=== PATIENT | female | born 1985 | race Caucasian/White ===

== ENCOUNTER 2023-08-04 12:08 | Emergency (ER) | payer OTHER ==
[2023-08-04] MEDS ORDERED: ONDANSETRON 4 MG (ODT) TAB ONE (12:25)
[2023-08-04] MEDS ORDERED: MORPHINE 4 MG/ML SYR ONE (12:26)
--- NOTE | 2023-08-04 13:31 | RAD REPORT ---
EXAM DESCRIPTION: RAD - Ribs Left - 08/04/2023 1:24 pm CLINICAL HISTORY: PAIN COMPARISON: <Comparisons> FINDINGS/IMPRESSION: No displaced left-sided rib fractures identified. No pneumothorax. Scoliosis.
--- NOTE | 2023-08-04 13:40 | EDPHYS ---
Physician Documentation [facility] Name: Amber José Age: 38 yrs Sex: Female : 1985 Arrival Date: 08/04/2023 Time: 12:08 Bed 12 Private MD: ED Physician Aman Ford HPI: 08/03 12:25 This 38 yrs old Female presents to ER via Wheelchair with complaints of Rib pain. sb4 12:25 The patient or guardian reports chest pain that is located primarily in the anterior sb4 chest wall. Onset: The symptoms/episode began/occurred 6 day(s) ago. The pain does not radiate. Associated signs and symptoms: Pertinent negatives: cough, dizziness, headache, lightheadedness, shortness of breath. Modifying factors: The symptoms are alleviated by nothing. the symptoms are aggravated by breathing, cough, deep breath, movement. The patient has not recently seen a physician. 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 - Infectious Disease History:: Denies. - Social history:: Smoking status: Patient denies any tobacco usage or history of. ROS: 12:25 Constitutional: Negative for fever, chills, and weight loss, sb4 12:25 MS/extremity: Positive for per HPI, 12:25 All other systems are negative, Exam: 12:25 Cardiovascular: Regular rate and rhythm with a normal S1 and S2. Respiratory: Lungs sb4 have equal breath sounds bilaterally, clear to auscultation and percussion. No rales, rhonchi or wheezes noted. No increased work of breathing, no retractions or nasal flaring. 12:25 Constitutional: The patient appears alert, awake, in obvious pain, uncomfortable, 12:25 Chest/axilla: Inspection: normal, Palpation: tenderness, that is moderate, of the left ninth rib and left tenth rib, that totally reproduces the patient's complaints, abrasion noted to left anterior chest wall. Vital Signs: 12:17 BP 151 / 115; Pulse 93; Resp 17; Temp 97.8; Pulse Ox 100% on R/A; Weight 65.77 kg; ll1 Height 5 ft. 0 in. ; Pain 10/10; 13:46 BP 147 / 97; Pulse 77; Resp 18; Pulse Ox 100% on R/A; mb9 12:17 Body Mass Index 28.32 (65.77 kg, 152.4 cm) ll1 12:17 Pain Scale: Adult ll1 MDM: 12:12 Patient medically screened. sb4 12:25 Differential diagnosis: Chest Wall Contusion Chest Wall Injury Pneumothorax Pulmonary sb4 Contusion Rib Fracture. 13:38 Data reviewed: vital signs, nurses notes, radiologic studies, and as a result, I will sb4 discharge patient. Counseling: I had a detailed discussion with the patient and/or guardian regarding the historical points, exam findings, and any diagnostic results supporting the discharge/admit diagnosis, radiology results, to return to the emergency department if symptoms worsen or persist or if there are any questions or concerns that arise at home. 08/03 12:20 Order name: Ribs Left XRAY; Complete Time: 13:34 sb4 08/03 13:36 Order name: INCENTIVE SPIROMETRY sb4 Administered Medications: 12:30 Drug: morphine IM 4 mg IM once Route: IM; Site: right gluteus; mb9 13:02 Follow up: Response: No adverse reaction mb9 12:30 Drug: Ondansetron Oral Disintegrating Tablet Oral Disintegrating Tablet 4 mg PO once mb9 Route: PO; 13:02 Follow up: Response: No adverse reaction mb9 Disposition Summary: 08/04/23 13:39 Discharge Ordered Notes: Location: Home sb4 Problem: new sb4 Symptoms: have improved sb4 Condition: Stable sb4 Diagnosis - Sprain of ribs sb4 Followup: sb4 - With: Emergency Department - When: As needed - Reason: Trouble breathing, Worsening of condition Discharge Instructions: - Discharge Summary Sheet sb4 - Rib Contusion sb4 - How to Use an Incentive Spirometer sb4 Forms: - Patient Portal Instructions sb4 - Leadership Thank You Letter sb4 Prescriptions: - acetaminophen-codeine 300-30 mg Oral tablet - take 1 tablet ORAL route every 4 to 6 hours as needed for pain; 20 tablet; sb4 Refills: 0, Product Selection Permitted Signatures: Dispatcher [employer] EDMS Jeff, Lynsay, RN RN ll1 Maribell Casarez PA-C PA-C sb4 Denisa Zavala, RN RN mb9
--- NOTE | 2023-08-04 13:40 | ER ---
Nurse's Notes [facility] Name: Amber José Age: 38 yrs Sex: Female : 1985 Arrival Date: 08/04/2023 Time: 12:08 Bed 12 Private MD: Diagnosis: Sprain of ribs Presentation: 08/03 12:17 Chief complaint: Patient states: Hit L ribs on concrete in the pool on Sunday. ll1 Yesterday and today she has severe pain in the L rib cage area. Coronavirus screen: Client denies travel out of the [place] in the last 14 days. At this time, the client does not indicate any symptoms associated with coronavirus-19. Ebola Screen: Patient denies travel to an Ebola-affected area in the 21 days before illness onset. Initial Sepsis Screen: Does the patient meet any 2 criteria? No. Patient's initial sepsis screen is negative. Does the patient have a suspected source of infection? No. Patient's initial sepsis screen is negative. Risk Assessment: Do you want to hurt yourself or someone else? Patient reports no desire to harm self or others. Onset of symptoms was July 29, 2023. 12:17 Method Of Arrival: Wheelchair ll1 12:17 Acuity: RACHEAL 4 ll1 Triage Assessment: 12:19 General: Appears uncomfortable, Behavior is calm, cooperative, appropriate for age. ll1 Pain: Complains of pain in L sided ribs Pain currently is 10 out of 10 on a pain scale. Quality of pain is described as aching. Respiratory: Reports pain with respiration pain to left rib cage area. 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 - Infectious Disease History:: Denies. - Social history:: Smoking status: Patient denies any tobacco usage or history of. Screenin:21 [facility] ED Fall Risk Assessment (Adult) History of falling in the last 3 months, mb9 including since admission No falls in past 3 months (0 pts) Confusion or Disorientation No (0 pts) Intoxicated or Sedated No (0 pts) Impaired Gait No (0 pts) Mobility Assist Device Used No (0 pt) Altered Elimination No (0 pt) Score/Fall Risk Level 0 - 2 = Low Risk Oriented to surroundings, Maintained a safe environment, Educated pt \T\ family on fall prevention, incl call for assistance when getting out of bed. Abuse screen: Denies threats or abuse. Nutritional screening: No deficits noted. Tuberculosis screening: No symptoms or risk factors identified. Assessment: 12:30 General: Appears uncomfortable, Behavior is cooperative. Pain: Complains of pain in mb9 left tenth rib and left ninth rib Pain currently is 10 out of 10 on a pain scale. Quality of pain is described as pressure, throbbing, Pain began 2-3 days ago. Is continuous, Aggravated by increased activity, repositioning. Neuro: Sanchez Agitation-Sedation Scale (RASS): 0 - Alert and Calm Level of Consciousness is awake, alert, obeys commands, Oriented to person, place, time, situation, Appropriate for age. Cardiovascular: Patient's skin is warm and dry. Respiratory: Airway is patent Respiratory effort is even, unlabored, Respiratory pattern is regular, symmetrical. GI: No signs and/or symptoms were reported involving the gastrointestinal system. : No signs and/or symptoms were reported regarding the genitourinary system. EENT: No signs and/or symptoms were reported regarding the EENT system. Derm: Bruising that is dark purple, on left tenth rib and left ninth rib. Musculoskeletal: Range of motion: intact in all extremities. Vital Signs: 12:17 BP 151 / 115; Pulse 93; Resp 17; Temp 97.8; Pulse Ox 100% on R/A; Weight 65.77 kg; ll1 Height 5 ft. 0 in. ; Pain 10/10; 13:46 BP 147 / 97; Pulse 77; Resp 18; Pulse Ox 100% on R/A; mb9 12:17 Body Mass Index 28.32 (65.77 kg, 152.4 cm) ll1 12:17 Pain Scale: Adult ll1 ED Course: 12:11 Patient arrived in ED. ts1 12:12 Maribell Casarez PA-C is PHCP. sb4 12:12 Aman Ford MD is Attending Physician. sb4 12:15 Arm band placed on. ll1 12:19 Triage completed. ll1 12:20 Denisa Zavala, RN is Primary Nurse. mb9 12:22 Bed in low position. Call light in reach. Side rails up X 1. Provided Education on: [email or web address] press the call light if needing anything. Client placed on continuous cardiac and pulse oximetry monitoring. NIBP monitoring applied. 12:22 No provider procedures requiring assistance completed. mb9 13:25 Ribs Left XRAY In Process Unspecified. EDMS 13:46 Patient did not have IV access during this emergency room visit. mb9 Administered Medications: 12:30 Drug: morphine IM 4 mg IM once Route: IM; Site: right gluteus; mb9 13:02 Follow up: Response: No adverse reaction mb9 12:30 Drug: Ondansetron Oral Disintegrating Tablet Oral Disintegrating Tablet 4 mg PO once mb9 Route: PO; 13:02 Follow up: Response: No adverse reaction mb9 Medication: 12:21 VIS not applicable for this client. mb9 Outcome: 13:39 Discharge ordered by . [email or web address] 13:46 Discharged to home ambulatory, with family, mb9 13:46 Condition: stable 13:46 Discharge instructions given to patient, family, Instructed on discharge instructions, follow up and referral plans. Demonstrated understanding of instructions, follow-up care, medications, Prescriptions given X 1, 13:46 Patient left the ED. mb9 Signatures: Dispatcher [employer] Ekaterina Salvador RN RN ll1 Maribell Casarez, PARadhaC PARadhaC sb4 Denisa Zavala RN RN mb9 Aniyah Meadows PAS PAS ts1
[2023-08-04 14:13] VITALS: BP 147/97; TEMP 97.8; O2SAT 100
== END 2023-08-04 13:46 | disposition home or self-care (01) ==
LOC: ER 12:08
DX: S23.41XA Sprain of ribs, initial encounter (principal)
CPT/HCPCS: 71100; 96372; 99284; Q0162

== ENCOUNTER 2023-12-18 21:11 | Emergency (ER) | payer OTHER ==
[2023-12-18] MEDS ORDERED: METOCLOPRAMIDE 10 MG/2mL INJ ONE (21:44)
[2023-12-18] MEDS ORDERED: LORazepam 2 MG/ML VIAL ONE (21:44)
[2023-12-18] MEDS ORDERED: MORPHINE 4 MG/ML SYR ONE (21:44)
[2023-12-18] MEDS ORDERED: ONDANSETRON 4 MG/2 ML VIAL ONE (21:44)
[2023-12-18] MEDS ORDERED: NA CHLORIDE 0.9% 2,000 ML ONE (21:45)
[2023-12-18 21:59] LABS: Sqamous Epithelial <5 /HPF (None Seen); Urine Bacteria <20 /HPF (<20); Urine Bilirubin NEGATIVE (Negative); Urine Blood 1+ (Negative); Urine Clarity Extremely Turbid (Clear); Urine Color Yellow (Yellow); Urine Crystals Unidentified Few /HPF (None Seen); Urine Culture Reflex Order REFLEXED; Urine Glucose NEGATIVE (Negative); Urine Ketones NEGATIVE (Negative); Urine Microscopic Reflex YN ORDER UMIC; Urine Nitrite NEGATIVE (Negative); Urine Protein 1+ (Negative); Urine Urobilinogen Normal (Normal); Urine WBC >50 /HPF (<5); Urine WBC Clump Occasional /HPF (None Seen)
[2023-12-18 22:08] LABS: Absolute Lymphocytes (CBC) 0.6 K/uL (0.7-4.9); Absolute Monocytes 0.4 K/uL (0.1-1.3); Absolute Neutrophil 10.1 K/uL (1.8-8.0); Basophils % 0.4 % (0-1.3); Hemoglobin 13.6 g/dL (12.0-15.0); Lymphocytes % 5.6 % (15.3-44.8); MCH 34.3 pg (27.0-35.0); MCV 100.9 fL (80-100); MPV 9.7 fL (7.6-11.3); Monocytes % 3.2 % (3.3-12.3); Neutrophils % 90.8 % (41.7-73.7); Nucleated Red Blood Cells % 0.1 % (0-0); Platelets 276 thou/uL (152-406); RBC Red Blood Cell Count 3.96 M/uL (3.86-4.86); Red Cell Distribution Width 14.2 % (12.1-15.2)
[2023-12-18 22:09] LABS: Albumin 3.3 g/dL (3.4-5.0); Albumin/Globulin Ratio 0.7 (1.1-1.8); Anion Gap 10.3 mEq/L (5.0-15.0); Bilirubin Total 0.8 mg/dL (0.2-1.0); Globulin 4.5 g/dL (2.3-3.5); Potassium 3.3 mEq/L (3.5-5.1); Protein, Total 7.8 g/dL (6.4-8.2)
[2023-12-18 23:16] LABS: Band Neutrophils 14 % (0-1); Differential Total Cells Count 100; Lymphocytes 10 % (15-42); Monocytes 5 % (0-10); Segmented Neutrophils 71 % (40-80)
[2023-12-18 23:17] LABS: Blood Morphology Comment NOT SEEN (NOT SEEN); Platelet Estimate ADEQ
[2023-12-18] MEDS ORDERED: ACETAMINOPHEN 500 MG TAB ONE (23:50)
[2023-12-18] MEDS ORDERED: KETOROLAC 30 MG/ML INJ ONE (23:50)
--- NOTE | 2023-12-19 00:42 | RAD REPORT ---
EXAM: CT Abdomen and Pelvis With Intravenous Contrast CLINICAL HISTORY: The patient is 38 years old and is Female; ABD PAIN TECHNIQUE: Axial computed tomography images of the abdomen and pelvis with intravenous contrast. Sagittal an d coronal reformatted images were created and reviewed. This CT exam was performed using one or more of the following dose reduction techniques: automated exposure control, adjustment of the mA a nd/or kV according to patient size, and/or use of iterative reconstruction technique. COMPARISON: No relevant prior studies available. FINDINGS: LUNG BASES: Unremarkable. No mass. No consolidation. ABDOMEN: LIVER: The liver is enlarged and fatty. GALLBLADDER AND BILE DUCTS: The gallbladder is distended. No calcified gallstones or ductal dilat ation is seen. PANCREAS: No ductal dilation. No mass. SPLEEN: Unremarkable. ADRENALS: Unremarkable. No mass. KIDNEYS AND URETERS: Few subtle scattered areas of peripheral low attenuation within the renal pa renchyma bilaterally with mild enhancement of the urothelium of the ureters is noted. No obstructing calculus is seen. There is no hydronephrosis or hydroureter of either kidney. STOMACH AND BOWEL: Postsurgical change consistent with a gastric bypass is noted. The small bowel is normal in caliber. Stool is present throughout the colon. There is no mucosal thickening or evidence of obstruction. PELVIS: APPENDIX: The appendix is normal in caliber without surrounding inflammation. BLADDER: The bladder is well distended. REPRODUCTIVE: A 2.5 cm left ovarian cyst is present. No follow-up imaging is recommended. The mi'kmaq jeremy and right ovary are normal. ABDOMEN and PELVIS: INTRAPERITONEAL SPACE: Trace free fluid is present within the pelvis which is likely physiologic. No free air. BONES/JOINTS: No acute fracture. SOFT TISSUES: Bilateral breast implants are partially visualized. VASCULATURE: Unremarkable. No abdominal aortic aneurysm. LYMPH NODES: Unremarkable. No enlarged lymph nodes. IMPRESSION: Findings suggest mild bilateral pyelonephritis and associated ureteritis. Electronically signed by: Funmi Love MD 12/19/2023 12:10 AM CDT Due to temporary technical issues with the PACS/[employer] reporting system, reports are being jerry d by the in-house radiologist without review as a courtesy to ensure prompt reporting the interpreting radiologist is fully responsible for the content of the report. Transcribed Date/Time: 12/19/2023 12:42 AM
[2023-12-19] MEDS ORDERED: PROMETHAZINE 25 MG TABLET ONE (01:09)
[2023-12-19] MEDS ORDERED: CEFTRIAXONE 1000 MG/VIAL ONE (01:09)
[2023-12-19] MEDS ORDERED: HYDROCODONE/APAP 10/325 TAB ONE (01:10)
[2023-12-19] MEDS ORDERED: METRONIDAZOLE 500mg IVPB 500 MG/100 ML BAG IV ONE (01:10)
--- NOTE | 2023-12-19 04:09 | ER ---
Nurse's Notes [facility] Name: Amber José Age: 38 yrs Sex: Female : 1985 Arrival Date: 12/18/2023 Time: 21:11 Bed 18 Private MD: Diagnosis: Pyelonephritis acute;Acute right flank pain Presentation: 12/17 21:21 Chief complaint: Patient states: I have 10/10 pain in my right flank that radiates kd3 around to my groin. I have a history of kidney stones. I have been vomiting. Coronavirus screen: Vaccine status: Patient reports receiving the 2nd dose of the covid vaccine. Ebola Screen: No symptoms or risks identified at this time. Initial Sepsis Screen: Does the patient meet any 2 criteria? Temp <36.0*C (96.8*F)) or > 38.3*C (100.9*F). HR > 90 bpm. Yes Does the patient have a suspected source of infection?. Risk Assessment: Do you want to hurt yourself or someone else? Patient reports no desire to harm self or others. Onset of symptoms was December 18, 2023. 21:21 Method Of Arrival: Ambulatory kd3 21:21 Acuity: RACHEAL 3 kd3 Triage Assessment: 21:23 General: Appears uncomfortable, Behavior is calm, cooperative. Pain: Complains of pain kd3 in back. GI: Reports vomiting. Historical: - Allergies: 21:23 Benadryl; kd3 21:23 anti inflammatory drugs; kd3 21:23 dermabond; kd3 - Immunization history:: Adult Immunizations up to date. - Infectious Disease History:: Denies. - Social history:: Smoking status: Patient denies any tobacco usage or history of. - Family history:: not pertinent. Screenin:27 [facility] ED Fall Risk Assessment (Adult) History of falling in the last 3 months, kd3 including since admission No falls in past 3 months (0 pts) Confusion or Disorientation No (0 pts) Intoxicated or Sedated No (0 pts) Impaired Gait No (0 pts) Mobility Assist Device Used No (0 pt) Altered Elimination No (0 pt) Score/Fall Risk Level 0 - 2 = Low Risk Oriented to surroundings. Abuse screen: Denies threats or abuse. Denies injuries from another. Nutritional screening: No deficits noted. Tuberculosis screening: No symptoms or risk factors identified. Assessment: 22:23 General: Appears in no apparent distress. Behavior is calm, cooperative. General: kd3 Patient found resting in the stretcher, eyes closed, respirations even and unlabored, skin is warm and dry. Patient woken up for assessment. Patient reports improvement of symptoms with medications and interventions. Patient has fluids running to the right A/C. . Pain: Denies pain. Neuro: Level of Consciousness is awake, alert, obeys commands. Cardiovascular: Patient's skin is warm and dry. Respiratory: Airway is patent Trachea midline Respiratory effort is even, unlabored, Respiratory pattern is regular, symmetrical. 23:32 General: Patient is seen returned to the room from CT. Eyes are closed, respirations kd3 are even and unlabored, skin is warm and dry. Pt still reports little pain and discomfort. Pt placed back on the monitor. VSS. . 23:54 General: The patient woke up and started trebling. Patient temp is 100.8. Patient kd3 administered Tylenol and Toradol. Pt confirmed that she can have Toradol. . 12/18 01:24 GI: Bowel sounds present X 4 quads. Abd is soft X 4 quads. kd3 Vital Signs: 12/17 21:21 BP 150 / 90; Pulse 107; Resp 18; Temp 101.7(O); Pulse Ox 96% on R/A; Weight 65.77 kg; kd3 Height 5 ft. 0 in. ; Pain 12/12; 22:26 BP 131 / 81; Pulse 101; Resp 18; Pulse Ox 100% on R/A; kd3 23:32 BP 134 / 90; Pulse 98; Resp 18; Temp 100.8(O); Pulse Ox 100% ; kd3 12/18 01:23 BP 97 / 62; Pulse 98; Resp 16; Pulse Ox 98% on R/A; kd3 03:51 BP 93 / 69; Pulse 66; Resp 17; Temp 98.2(O); Pulse Ox 100% on R/A; kd3 12/17 21:21 Body Mass Index 28.32 (65.77 kg, 152.4 cm) kd3 12/17 21:21 Pain Scale: Adult kd3 Anne-Marie Coma Score: 03:29 Eye Response: spontaneous(4). Motor Response: obeys commands(6). Verbal Response: sp4 oriented(5). Total: 15. ED Course: 12/17 21:12 Patient arrived in ED. jj6 21:14 Mari[facility]roncoso [facility]-C [facility]. kb 21:14 Yemi Ramires MD is Attending Physician. kb 21:21 Farida Gutiérrez, RN is Primary Nurse. kd3 21:23 Triage completed. kd3 21:23 Arm band placed on left wrist. kd3 21:48 Blood Culture Adult (2) Sent. kd3 21:48 CRP Sent. kd3 21:48 CBC with Diff Sent. kd3 21:48 CMP Sent. kd3 21:48 Lipase Sent. kd3 21:48 Test, Urine Sent. kd3 21:48 Urinalysis w/ reflexes Sent. kd3 21:48 Inserted saline lock: 20 gauge in right antecubital area, using aseptic technique. kd3 Blood collected. Flushed with 10 mL NS. 22:27 Patient has correct armband on for positive identification. Provided Education on: kd3 medications . 22:27 No provider procedures requiring assistance completed. kd3 22:28 Urine Culture Sent. kd3 23:13 CT Abd/Pelvis - IV Contrast Only In Process Unspecified. EDMS 12/18 03:51 IV discontinued, intact, bleeding controlled, No redness/swelling at site. Pressure kd3 dressing applied. Administered Medications: 12/17 21:57 Drug: metoCLOPramide IVP 10 mg IVP once; over 1 to 2 minutes Route: IVP; Site: right tm6 antecubital; 22:28 Follow up: Response: No adverse reaction kd3 21:57 Drug: NS 0.9% IV 1000 ml IV at 125 ml/hr continuous Route: IV; Rate: 125 ml/hr; Site: tm6 right antecubital; 12/18 03:54 Follow up: IV Status: Completed infusion kd3 12/17 21:57 Drug: NS 0.9% IV 1000 ml IV at 1000 ml once; to be given as a bolus over 60 minutes tm6 Route: IV; Rate: 1000 ml; Site: right antecubital; 12/18 03:53 Follow up: IV Status: Completed infusion kd3 12/17 21:58 Drug: morphine IVP or IV 4 mg IVP once over 4 mins Route: IVP; Infused Over: 4 mins; tm6 Site: right antecubital; 22:28 Follow up: Response: No adverse reaction; Pain is decreased kd3 21:58 Drug: Ativan IVP 2 mg IVP once Route: IVP; Site: right antecubital; tm6 22:28 Follow up: Response: No adverse reaction; Anxiety decreased kd3 21:58 Drug: Ondansetron IVP 4 mg IVP once; over 2 minutes Route: IVP; Site: right antecubital;tm6 22:28 Follow up: Response: No adverse reaction; Nausea is decreased kd3 23:52 Drug: Acetaminophen PO 1000 mg PO once Route: PO; kd3 23:52 Drug: Ketorolac IVP 30 mg IVP once Route: IVP; Site: right antecubital; kd3 12/18 01:21 Drug: metroNIDAZOLE IVPB 500 mg 100 ml IVPB at 200 ml/hr once over 30 mins Volume: 100 kd3 ml; Route: IVPB; Rate: 200 ml/hr; Infused Over: 30 mins; Site: right antecubital; 03:53 Follow up: IV Status: Completed infusion kd3 01:21 Drug: Barnhart PO 10 mg-325 mg 1 tabs PO once Route: PO; kd3 01:21 Drug: Promethazine PO 25 mg PO once Route: PO; kd3 01:22 Drug: Rocephin - Rocephin (cefTRIAXone) IVPB 1 grams IVPB once over 30 mins; (mix in 50 kd3 mL NS) Route: IVPB; Infused Over: 30 mins; Site: right antecubital; 03:53 Follow up: IV Status: Completed infusion kd3 Medication: 12/17 22:27 VIS not applicable for this client. kd3 Outcome: 12/18 03:23 Discharge ordered by MD. flores 03:51 Discharged to home ambulatory, kd3 03:51 Condition: stable 03:51 Discharge instructions given to patient, Instructed on discharge instructions, follow up and referral plans. medication usage, Demonstrated understanding of instructions, follow-up care, medications, Prescriptions given X 4, 03:54 Patient left the ED. kd3 Signatures: Dispatcher [employer] EDKS Mariya Troncoso FNP-C FNP-Sloaen Bloom Kyli, RN RN kd3 Yemi Ramires MD MD sp4 Kulwant Haynes, THOM RN tm6
--- NOTE | 2023-12-19 04:09 | EDPHYS ---
Physician Documentation [facility] Name: Amber José Age: 38 yrs Sex: Female : 1985 Arrival Date: 12/18/2023 Time: 21:11 Bed 18 Private MD: ED Physician Yemi Ramires HPI: 12/17 21:16 This 38 yrs old Other Race Female presents to ER via Unassigned with complaints of sp4 Possible Kidney Stone. 12/18 03:25 38-year-old female with history of extensive kidney stones presents with sub-acute sp4 onset right flank pain. Patient states she had flank pain on and off for the past several months but today flank pain is increasingly painful. States she has had multiple kidney stones in the past that were managed at [facility] also history of ESBL E. coli ( Extended-spectrum beta-lactamase (ESBL)-producing Escherichia coli ). Historical: - Allergies: 12/17 21:23 Benadryl; kd3 21:23 anti inflammatory drugs; kd3 21:23 dermabond; kd3 - Immunization history:: Adult Immunizations up to date. - Infectious Disease History:: Denies. - Social history:: Smoking status: Patient denies any tobacco usage or history of. - Family history:: not pertinent. ROS: 12/18 03:29 Constitutional: Negative for fever, chills, and weight loss, positive for vomiting, sp4 positive for right flank pain, positive for abdominal pain All other systems are negative, Exam: 03:29 Constitutional: This is a well developed, well nourished patient who is awake, sp4 uncomfortable appearing, febrile on arrival, tachycardic on arrival. Head/Face: Normocephalic, atraumatic. Eyes: Pupils equal round and reactive to light, extra-ocular motions intact. Lids and lashes normal. Conjunctiva and sclera are not injected. Cornea within normal limits. Periorbital areas with no swelling, redness, or edema. ENT: Nares patent. No nasal discharge, no septal abnormalities noted. Tympanic membranes are normal and external auditory canals are clear. Oropharynx with no redness, swelling, or masses, exudates, or evidence of obstruction, uvula midline. Mucous membranes moist. Neck: Trachea midline, no thyromegaly or masses palpated, and no cervical lymphadenopathy. Supple, full range of motion without nuchal rigidity, or vertebral point tenderness. Chest/axilla: Normal chest wall appearance and motion. Nontender with no deformity. No lesions are appreciated. Cardiovascular: Regular rate and rhythm with a normal S1 and S2. No gallops, murmurs, or rubs. Normal PMI, no JVD. No pulse deficits. Respiratory: Lungs have equal breath sounds bilaterally, clear to auscultation and percussion. No rales, rhonchi or wheezes noted. No increased work of breathing, no retractions or nasal flaring. Abdomen/GI: Soft, with normal bowel sounds. No distension or tympany. No guarding or rebound. Significant diffuse abdominal tenderness, positive for right CVS tenderness Back: No spinal tenderness. No costovertebral tenderness. Skin: Warm, dry with normal turgor. Normal color with no rashes, no lesions, and no evidence of cellulitis. MS/ Extremity: Pulses equal, no cyanosis. Neurovascular intact. Full, normal range of motion. Neuro: Awake and alert, GCS 15, oriented to person, place, time, and situation. Cranial nerves II-XII grossly intact. Motor strength 5/5 in all extremities. Sensory grossly intact. Psych: Awake, alert, with orientation to person, place and time. Behavior, mood, and affect are within normal limits Vital Signs: 12/17 21:21 BP 150 / 90; Pulse 107; Resp 18; Temp 101.7(O); Pulse Ox 96% on R/A; Weight 65.77 kg; kd3 Height 5 ft. 0 in. ; Pain 10/10; 22:26 BP 131 / 81; Pulse 101; Resp 18; Pulse Ox 100% on R/A; kd3 23:32 BP 134 / 90; Pulse 98; Resp 18; Temp 100.8(O); Pulse Ox 100% ; kd3 12/18 01:23 BP 97 / 62; Pulse 98; Resp 16; Pulse Ox 98% on R/A; kd3 03:51 BP 93 / 69; Pulse 66; Resp 17; Temp 98.2(O); Pulse Ox 100% on R/A; kd3 12/17 21:21 Body Mass Index 28.32 (65.77 kg, 152.4 cm) kd3 12/17 21:21 Pain Scale: Adult kd3 Rosamond Coma Score: 03:29 Eye Response: spontaneous(4). Motor Response: obeys commands(6). Verbal Response: sp4 oriented(5). Total: 15. MDM: 12/17 21:14 Medical Screening Exam initiated kb 12/18 00:47 ED course: EXAM: CTAbdomen and Pelvis With Intravenous Contrast CLINICAL HISTORY: The sp4 patient is 38 years old and is Female; ABD PAIN TECHNIQUE: Axial computed tomography images of the abdomen and pelvis with intravenous contrast. Sagittal and coronal reformatted images were created and reviewed. This CT exam was performed using one or more of the following dose reduction techniques: automated exposure control, adjustment of the mA and/or kV according to patient size, and/or use of iterative reconstruction technique. COMPARISON: No relevant prior studies available. FINDINGS: LUNG BASES: Unremarkable. No mass. No consolidation. ABDOMEN: LIVER: The liver is enlarged and fatty. GALLBLADDER AND BILE DUCTS: The gallbladder is distended. No calcified gallstones or ductal dilatation is seen. PANCREAS: No ductal dilation. No mass. SPLEEN: Unremarkable. ADRENALS: Unremarkable. No mass. KIDNEYS AND URETERS: Few subtle scattered areas of peripheral low attenuation within the renal parenchyma bilaterally with mild enhancement of the urothelium of the ureters is noted. No obstructing calculus is seen. There is no hydronephrosis or hydroureter of either kidney. STOMACH AND BOWEL: Postsurgical change consistent with a gastric bypass is noted. The small bowel is normal in caliber. Stool is present throughout the colon. There is no mucosal thickening or evidence of obstruction. PELVIS: APPENDIX: The appendix is normal in caliber without surrounding inflammation. BLADDER: The bladder is well distended. REPRODUCTIVE: A 2.5 cm left ovarian cyst is present. No follow-up imaging is recommended. The uterus and right ovary are normal. ABDOMEN and PELVIS: INTRAPERITONEAL SPACE: Trace free fluid is present within the pelvis which is likely physiologic. No free air. BONES/JOINTS: No acute fracture. SOFT TISSUES: Bilateral breast implants are partially visualized. VASCULATURE: Unremarkable. No abdominal aortic aneurysm. LYMPH NODES: Unremarkable. No enlarged lymph nodes. IMPRESSION: Findings suggest mild bilateral pyelonephritis and associated ureteritis. Electronically signed by: Funmi Love MD 12/19/2023 12:10 AM CD. 03:29 Differential diagnosis: Acute Hemolysis Cholelithiasis chronic back pain, Myeloma sp4 Peptic Ulcer Pyelonephritis Renal Infarction. Data reviewed: vital signs, nurses notes, lab test result(s), radiologic studies, CT scan. Consideration of Admission/Observation Escalation of care including admission/observation considered. ED course: Patient's tachycardia and fever has improved. Patient stable for discharge home . Will provide double coverage with cephalexin and Flagyl.. 12/17 21:15 Order name: CBC with Diff; Complete Time: 23:48 sp4 12/17 21:15 Order name: CMP; Complete Time: 23:48 sp4 12/17 21:15 Order name: Lipase; Complete Time: 23:48 sp4 12/17 21:15 Order name: Test, Urine; Complete Time: 23:48 sp4 12/17 21:15 Order name: Urinalysis w/ reflexes; Complete Time: 23:48 sp4 12/17 21:20 Order name: CRP; Complete Time: 23:48 sp4 12/17 21:20 Order name: Blood Culture Adult (2) [facility] 12/17 22:04 Order name: Urine Culture EDRI 12/17 22:18 Order name: Manual Differential; Complete Time: 23:48 EDMS 12/17 21:15 Order name: CT Abd/Pelvis - IV Contrast Only 4 12/17 21:15 Order name: IV Saline Lock; Complete Time: 21:48 4 12/17 21:15 Order name: Labs collected and sent; Complete Time: 21:48 sp4 Administered Medications: 12/17 21:57 Drug: metoCLOPramide IVP 10 mg IVP once; over 1 to 2 minutes Route: IVP; Site: right tm6 antecubital; 22:28 Follow up: Response: No adverse reaction kd3 21:57 Drug: NS 0.9% IV 1000 ml IV at 125 ml/hr continuous Route: IV; Rate: 125 ml/hr; Site: tm6 right antecubital; 12/18 03:54 Follow up: IV Status: Completed infusion kd3 12/17 21:57 Drug: NS 0.9% IV 1000 ml IV at 1000 ml once; to be given as a bolus over 60 minutes tm6 Route: IV; Rate: 1000 ml; Site: right antecubital; 12/18 03:53 Follow up: IV Status: Completed infusion kd3 12/17 21:58 Drug: morphine IVP or IV 4 mg IVP once over 4 mins Route: IVP; Infused Over: 4 mins; tm6 Site: right antecubital; 22:28 Follow up: Response: No adverse reaction; Pain is decreased kd3 21:58 Drug: Ativan IVP 2 mg IVP once Route: IVP; Site: right antecubital; tm6 22:28 Follow up: Response: No adverse reaction; Anxiety decreased kd3 21:58 Drug: Ondansetron IVP 4 mg IVP once; over 2 minutes Route: IVP; Site: right antecubital;tm6 22:28 Follow up: Response: No adverse reaction; Nausea is decreased kd3 23:52 Drug: Acetaminophen PO 1000 mg PO once Route: PO; kd3 23:52 Drug: Ketorolac IVP 30 mg IVP once Route: IVP; Site: right antecubital; kd3 12/18 01:21 Drug: metroNIDAZOLE IVPB 500 mg 100 ml IVPB at 200 ml/hr once over 30 mins Volume: 100 kd3 ml; Route: IVPB; Rate: 200 ml/hr; Infused Over: 30 mins; Site: right antecubital; 03:53 Follow up: IV Status: Completed infusion kd3 01:21 Drug: [place] PO 10 mg-325 mg 1 tabs PO once Route: PO; kd3 01:21 Drug: Promethazine PO 25 mg PO once Route: PO; kd3 01:22 Drug: Rocephin - Rocephin (cefTRIAXone) IVPB 1 grams IVPB once over 30 mins; (mix in 50 kd3 mL NS) Route: IVPB; Infused Over: 30 mins; Site: right antecubital; 03:53 Follow up: IV Status: Completed infusion kd3 Disposition Summary: 12/19/23 03:23 Discharge Ordered Notes: Location: Home sp4 Problem: new sp4 Symptoms: have improved sp4 Condition: Stable sp4 Diagnosis - Pyelonephritis acute sp4 - Acute right flank pain sp4 Followup: sp4 - With: Private Physician - When: 7 - 10 days - Reason: Recheck today's complaints Discharge Instructions: - Discharge Summary Sheet sp4 - Pyelonephritis, Adult, [id number] sp4 Prescriptions: - Cephalexin 500 mg Oral Capsule - take 1 capsule ORAL route every 8 hours for 10 days; 30 capsule; Refills: 0, sp4 Product Selection Permitted - Flagyl 500 mg Oral Tablet - take 1 tablet ORAL route every 8 hours for 10 days; 30 tablet; Refills: 0, sp4 Product Selection Permitted - Ibuprofen 800 mg Oral Tablet - take 1 tablet ORAL route every 8 hours As needed take with food; 30 tablet; sp4 Refills: 0, Product Selection Permitted - Pyridium 200 mg Oral Tablet - take 1 tablet ORAL route every 8 hours for 3 days; 9 tablet; Refills: 0, sp4 Product Selection Permitted - Tramadol 50 mg Oral tablet - take 1 tablet ORAL route every 8 hours as needed; 20 tablet; Refills: 0, sp4 Product Selection Permitted - ondansetron 8 mg Oral Tablet,disintegrating - take 1 tablet ORAL route every 8 hours PRN nausea; 30 tablet; Refills: 0, sp4 Product Selection Permitted Signatures: Dispatcher [employer] EDMS Mariya Troncoso FNP-C FNP-Ckb Doucette, Kyli RN RN kd3 Yemi Ramires MD MD sp4 Kulwant Haynes RN RN tm6 Corrections: (The following items were deleted from the chart) 12/17 21:21 21:21 C-REACTIVE PROTEIN+C.LAB.BRZ ordered. EDMS EDMS 21:21 21:21 BLOOD CULTURE*+BA.LAB.BRZ ordered. EDMS EDMS
[2023-12-19 09:26] VITALS: BP 93/69; TEMP 98.2; O2SAT 100
== END 2023-12-19 03:54 | disposition home or self-care (01) ==
LOC: ER 21:11
DX: N10 Acute pyelonephritis (principal); Z87.442 Personal history of urinary calculi
CPT/HCPCS: 87040 ×2; 87088; 85025; 81001; 87086; 36415; 87205 ×2; 81025; 83690; 80053; 86140; 74177; Q9967; Q0169; J2765; J2405; J7030; J0696; 96361; 96365; 96366; 96375; 99284

== ENCOUNTER 2024-01-11 19:16 | Emergency (ER) | payer OTHER ==
[2024-01-11] MEDS ORDERED: MORPHINE 4 MG/ML SYR ONE ×2 (20:57→22:18)
[2024-01-11] MEDS ORDERED: NA CHLORIDE 0.9% 2,000 ML ONE (20:58)
[2024-01-11] MEDS ORDERED: ONDANSETRON 4 MG/2 ML VIAL ONE (20:58)
[2024-01-11 21:07] LABS: PT Prothrombin Time 11.9 SECONDS (9.4-12.5); PTT, Activated Partial Thromb 29.5 SECONDS (24.3-36.9); Protime INR 1.06
[2024-01-11 21:16] LABS: Specific Gravity 1.005 (1.005-1.030); Urine Bilirubin NEGATIVE (Negative); Urine Blood Negative (Negative); Urine Clarity Turbid (Clear); Urine Color Colorless (Yellow); Urine Glucose NEGATIVE (Negative); Urine Ketones NEGATIVE (Negative); Urine Microscopic Reflex YN NO UMIC; Urine Nitrite NEGATIVE (Negative); Urine Protein NEGATIVE (Negative); Urine Urobilinogen Normal (Normal)
[2024-01-11 21:17] LABS: Absolute Basophils 0.1 K/uL (0-0.5); Absolute Eosinophils 0.1 K/uL (0-0.5); Absolute Lymphocytes (CBC) 2.5 K/uL (0.7-4.9); Absolute Monocytes 0.5 K/uL (0.1-1.3); Absolute Neutrophil 3.9 K/uL (1.8-8.0); Basophils % 0.8 % (0-1.3); Eosinophils % 1.1 % (0-4.4); Hematocrit 40.2 % (36.0-45.0); Hemoglobin 13.8 g/dL (12.0-15.0); Lymphocytes % 36.1 % (15.3-44.8); MCH 33.6 pg (27.0-35.0); MCHC 34.4 g/dL (32.0-36.0); MCV 97.6 fL (80-100); MPV 9.4 fL (7.6-11.3); Monocytes % 6.9 % (3.3-12.3); Neutrophils % 55.1 % (41.7-73.7); Nucleated Red Blood Cells % 0.2 % (0-0); Platelets 301 thou/uL (152-406); RBC Red Blood Cell Count 4.11 M/uL (3.86-4.86); Red Cell Distribution Width 14.1 % (12.1-15.2)
[2024-01-11 22:20] LABS: Albumin 3.6 g/dL (3.4-5.0); Albumin/Globulin Ratio 0.9 (1.1-1.8); Anion Gap 10.7 mEq/L (5.0-15.0); Bilirubin Total 0.5 mg/dL (0.2-1.0); Globulin 3.9 g/dL (2.3-3.5); Potassium 3.7 mEq/L (3.5-5.1); Protein, Total 7.5 g/dL (6.4-8.2)
--- NOTE | 2024-01-11 23:57 | RAD REPORT ---
EXAM DESCRIPTION: Abdomen Pelvis W Contrast RadLex: CT ABDOMEN PELVIS WITH IV CONTRAST CLINICAL HISTORY: 38 years Female; Abd pain;Flank pain; IV ONLY Bed Name: 12 TECHNIQUE: CT of the abdomen and pelvis [with] intravenous contrast. All CT scans at this facility use dose modulation, iterative reconstruction, and/or weight based dosi ng when appropriate to reduce radiation dose to as low as reasonably achievable. COMPARISON: None. FINDINGS: Lower thorax: Lung bases are clear Bilateral breast implants. Abdomen: Stomach: Gastric bypass changes noted. Liver: No focal lesions. No intrahepatic ductal distention. Gallbladder: Moderately distended. Pancreas: Within normal limits Spleen: Within normal limits Right kidney: No hydronephrosis. Subtle areas of cortical hypoattenuation. Left kidney: No hydronephrosis. Subcentimeter hypodensity, too small to characterize. Subtle areas of cortical hypoattenuation. Adrenal glands: Within normal limits Vascular structures: Within normal limits Nodes: No lymphadenopathy by size criteria Pelvis: Small bowel: No significant distention. Appendix: Within normal limits Colon: No distention or acute pericolonic edema. Moderate to large colonic stool burden. Peritoneum: No free intraperitoneal fluid or air. Bones: No acute bone findings. Bladder: Unremarkable. Reproductive organs: No acute findings. IMPRESSION: 1. Subtle areas of cortical hypoattenuation in the bilateral kidneys, can be seen in setting of alfonzo lonephritis. Correlate with urinalysis. 2. Moderate to large colonic stool burden. Electronically signed by: Mark Gil MD 01/11/2024 11:31 PM [facility] Z9 Due to temporary technical issues with the PACS/Synetiq reporting system, reports are being jerry d by the in-house radiologist without review as a courtesy to ensure prompt reporting the interpreting radiologist is fully responsible for the content of the report. Transcribed Date/Time: 01/11/2024 11:57 PM
--- NOTE | 2024-01-12 00:07 | ER ---
Nurse's Notes [facility] Name: Amber José Age: 38 yrs Sex: Female : 1985 Arrival Date: 01/11/2024 Time: 19:16 Bed 17 Private MD: Diagnosis: Low back pain;Constipation;Nausea with vomiting, unspecified Presentation: 01/10 19:45 Chief complaint: Patient states: I was sent by my doctor, he said I have a build up of tm6 e.coli and resistant to antibiotics. I have extreme flank pain on both sides, I feel feverish, and shaking. Coronavirus screen: Client denies travel out of the [place] in the last 14 days. Ebola Screen: Patient negative for fever greater than or equal to 101.5 degrees Fahrenheit, and additional compatible Ebola Virus Disease symptoms Patient denies exposure to infectious person. Patient denies travel to an Ebola-affected area in the 21 days before illness onset. No symptoms or risks identified at this time. Initial Sepsis Screen: Does the patient meet any 2 criteria? HR > 90 bpm. Does the patient have a suspected source of infection? No. Patient's initial sepsis screen is negative. Risk Assessment: Do you want to hurt yourself or someone else? Patient reports no desire to harm self or others. Onset of symptoms was January 11, 2024. 19:45 Method Of Arrival: Ambulatory tm6 19:45 Acuity: RACHEAL 3 tm6 Triage Assessment: 19:46 General: Appears distressed, uncomfortable, Behavior is cooperative. Pain: Complains of tm6 pain in back Pain currently is 10 out of 10 on a pain scale. EENT: No signs and/or symptoms were reported regarding the EENT system. Neuro: Level of Consciousness is awake, alert, obeys commands, Oriented to person, place, time, situation. Cardiovascular: Patient's skin is warm and dry. Respiratory: Airway is patent Respiratory effort is even, unlabored, Respiratory pattern is regular, symmetrical. GI: No signs and/or symptoms were reported involving the gastrointestinal system. Abdomen is flat, non-distended. : Reports pain in bilateral flank(s). Derm: No signs and/or symptoms reported regarding the dermatologic system. Musculoskeletal: Circulation, motion, and sensation intact. 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 - Infectious Disease History:: Denies. - Social history:: Smoking status: Patient denies any tobacco usage or history of. Patient/guardian denies using alcohol. Screenin:52 [facility] ED Fall Risk Assessment (Adult) History of falling in the last 3 months, tl4 including since admission No falls in past 3 months (0 pts) Confusion or Disorientation No (0 pts) Intoxicated or Sedated No (0 pts) Impaired Gait No (0 pts) Mobility Assist Device Used No (0 pt) Altered Elimination No (0 pt) Score/Fall Risk Level 0 - 2 = Low Risk Oriented to surroundings, Maintained a safe environment, Educated pt \T\ family on fall prevention, incl call for assistance when getting out of bed, Assessed \T\ reinforced patient's understanding of fall precautions. Abuse screen: Denies threats or abuse. Denies injuries from another. Nutritional screening: No deficits noted. Tuberculosis screening: No symptoms or risk factors identified. Assessment: 20:51 General: Appears in no apparent distress. Behavior is calm, cooperative. Pain: tl4 Complains of pain in back. Neuro: Level of Consciousness is awake, alert, obeys commands, Oriented to person, place, time, situation, Moves all extremities. Full function Gait is steady, Speech is normal, Facial symmetry appears normal. Cardiovascular: Capillary refill < 3 seconds Patient's skin is warm and dry. Respiratory: Airway is patent Respiratory effort is even, unlabored, Respiratory pattern is regular, symmetrical, Breath sounds are clear bilaterally. GI: Reports nausea, vomiting. : No signs and/or symptoms were reported regarding the genitourinary system. EENT: No signs and/or symptoms were reported regarding the EENT system. Derm: No signs and/or symptoms reported regarding the dermatologic system. Musculoskeletal: No signs and/or symptoms reported regarding the musculoskeletal system. 23:30 Reassessment: No changes from previously documented assessment. cp4 01/11 00:30 Reassessment: Patient appears in no apparent distress at this time. Patient and/or cp4 family updated on plan of care and expected duration. Pain level reassessed. Patient is alert, oriented x 3, equal unlabored respirations, skin warm/dry/pink. Vital Signs: 01/10 19:45 BP 129 / 84; Pulse 118; Resp 20; Temp 98.7(O); Pulse Ox 99% on R/A; MAP 101 mmHg; tm6 Weight 65.77 kg; Height 5 ft. 0 in. ; Pain 10/10; 19:46 BP 119 / 87; Pulse 98; Resp 14; Pulse Ox 100% on R/A; tl4 20:45 BP 119 / 81; Pulse 106; Resp 15; Pulse Ox 100% on R/A; Pain 8/10; tl4 21:15 BP 124 / 89; Pulse 106; Resp 19; Pulse Ox 99% on R/A; tl4 22:00 BP 113 / 72; Pulse 97; Resp 18; Pulse Ox 99% on R/A; tl4 23:00 BP 116 / 80; Pulse 100; Resp 18; Pulse Ox 100% ; cp4 01/11 00:00 BP 129 / 90; Pulse 95; Resp 18; Pulse Ox 100% ; cp4 00:00 BP 120 / 82; Pulse 92; Resp 18; Pulse Ox 100% ; cp4 01/10 19:45 Body Mass Index 28.32 (65.77 kg, 152.4 cm) tm6 01/10 19:45 Pain Scale: Adult tm6 20:45 Pain Scale: Adult tl4 ED Course: 01/10 19:20 Patient arrived in ED. gm2 19:35 Aman Palma PA is PHCP. cp 19:35 Napoleon Yu MD is Attending Physician. cp 19:46 Triage completed. tm6 19:46 Arm band placed on right wrist. tm6 19:48 Allergy band placed. tm6 20:30 First set of blood cultures drawn by me. tl4 20:45 Second set of blood cultures drawn by me. tl4 20:49 Carmelo Vaughn, RN is Primary Nurse. tl4 20:50 Blood Culture Adult (2) Sent. tl4 20:50 CBC with Diff Sent. tl4 20:50 CMP Sent. tl4 20:50 Lactate w/ 2H reflex if indic. Sent. tl4 20:50 Protime (+inr) Sent. tl4 20:50 Ptt, Activated Sent. tl4 20:50 Urinalysis w/ reflexes Sent. tl4 20:51 No provider procedures requiring assistance completed. Initial lab(s) drawn, by me, tl4 sent to lab. Urine collected: clean catch specimen, clear. Inserted saline lock: 22 gauge in right antecubital area, using aseptic technique. Blood collected. Flushed with 10 mL NS. 20:53 Patient has correct armband on for positive identification. Placed in gown. Bed in low tl4 position. Call light in reach. Side rails up X2. Provided Education on: ed process, call andrea. Client placed on continuous cardiac and pulse oximetry monitoring. NIBP monitoring applied. junior sales assistant on. Door closed. Noise minimized. Lights dimmed. Moved to private room. Warm blanket given. 20:55 Migel Avila MD is Attending Physician. cp 21:15 EKG done, by ED staff, reviewed by Aman WHITE. tl4 22:51 CT Abd/Pelvis - IV Contrast Only In Process Unspecified. EDMS 01/11 00:44 intact, bleeding controlled, No redness/swelling at site. Pressure dressing applied. cp4 Administered Medications: 01/10 21:14 Drug: NS 0.9% IV (30 ml/kg) 30 ml/kg IV at bolus once; Sepsis Protocol; to be given as tl4 a bolus over 90 minutes Route: IV; Rate: bolus; Site: right antecubital; Delivery: Primary tubing; 22:58 Follow up: Response: No adverse reaction tl4 23:12 Follow up: IV Status: Completed infusion; IV Intake: 1973ml tl4 21:15 Drug: morphine IVP or IV 4 mg IVP once over 4 mins Route: IVP; Infused Over: 4 mins; tl4 Site: right antecubital; 22:57 Follow up: Response: No adverse reaction; Pain is unchanged, physician notified tl4 21:15 Drug: Ondansetron IVP 4 mg IVP once; over 2 minutes Route: IVP; Infused Over: 2 mins; tl4 Site: right antecubital; 22:57 Follow up: Response: No adverse reaction; Nausea is decreased tl4 22:29 Drug: morphine IVP or IV 4 mg IVP once over 4 mins Route: IVP; Infused Over: 4 mins; tl4 Site: right antecubital; 22:57 Follow up: Response: No adverse reaction; Pain is decreased tl4 Medication: 20:52 VIS not applicable for this client. tl4 Intake: 23:12 IV: 1973ml; Total: 1973ml. tl4 Outcome: 01/11 00:07 Discharge ordered by MD. cp 00:44 Discharged to home ambulatory, cp4 00:44 Condition: stable 00:44 Discharge instructions given to patient, Instructed on discharge instructions, follow up and referral plans. medication usage, Demonstrated understanding of instructions, follow-up care, medications, Prescriptions given X 2, 00:45 Patient left the ED. cp4 Signatures: Dispatcher [employer] EDMS Aman Palma PA PA cp Potter, Christina cp4 Briseida Mackey 2 Kulwant Haynes RN RN tm6 Carmelo Vaughn RN RN tl4
--- NOTE | 2024-01-12 00:07 | EDPHYS ---
Physician Documentation [facility] Name: Amber José Age: 38 yrs Sex: Female : 1985 Arrival Date: 01/11/2024 Time: 19:16 Bed 17 Private MD: ED Physician Migel Avila HPI: 01/10 20:10 This 38 yrs old Female presents to ER via Ambulatory with complaints of Back Pain, cp Abnormal Lab Results, Nausea/Vomiting. 20:10 The patient presents with pain that is acute, with no known mechanism of injury. The cp symptoms are located in the low back area and mid back area. 20:10 Onset: The symptoms/episode began/occurred gradually, and became worse today. The pain cp does not radiate. Associated signs and symptoms: Pertinent positives: abdominal pain, fever, nausea, vomiting, Pertinent negatives: headache, numbness, tingling. 20:10 Patient is a 38-year-old female with past medical history significant for rheumatoid cp arthritis. She presents to the emergency department after being referred by her primary care doctor with concern for urinary tract infection. Patient has a culture report on her phone that shows concern for multi antibiotic resistance. She states she was diagnosed with a UTI several weeks ago and prescribed Keflex which was subsequently switched to Cipro which she is currently taking. She reports increased back pain and fever and nausea and vomiting. 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 - Infectious Disease History:: Denies. - Social history:: Smoking status: Patient denies any tobacco usage or history of. Patient/guardian denies using alcohol. ROS: 20:15 Constitutional: Negative for fever, cp 20:15 Eyes: Negative for injury, pain, redness, and discharge, cp 20:15 ENT: Negative for drainage from ear(s), ear pain, sore throat, difficulty swallowing, difficulty handling secretions, 20:15 Cardiovascular: Negative for chest pain, edema, palpitations, 20:15 Respiratory: Negative for cough, shortness of breath, wheezing, 20:15 Abdomen/GI: Positive for abdominal pain, nausea and vomiting, constipation, Negative for vomiting, 20:15 Back: Positive for pain at rest, pain with movement, 20:15 : Positive for urinary symptoms, 20:15 Neuro: Negative for altered mental status, dizziness, headache, weakness, 20:15 All other systems are negative, cp Exam: 20:20 Constitutional: The patient appears in no acute distress, alert, awake, cp non-diaphoretic, non-toxic, well developed, well nourished, in obvious pain, uncomfortable, 20:20 Head/Face: Normocephalic, atraumatic. cp 20:20 Eyes: Periorbital structures: appear normal, Conjunctiva: normal, no exudate, no injection, Sclera: no appreciated abnormality, Lids and lashes: appear normal, bilaterally, 20:20 ENT: External ear(s): are unremarkable, Nose: is normal, Mouth: Lips: moist, Oral mucosa: pink and intact, moist, Posterior pharynx: Airway: no evidence of obstruction, patent, 20:20 Neck: ROM/movement: is normal, is supple, without pain, no range of motions limitations, 20:20 Chest/axilla: Inspection: normal, 20:20 Cardiovascular: Rate: tachycardic, Rhythm: regular, Edema: is not appreciated, JVD: is not appreciated, 20:20 Respiratory: the patient does not display signs of respiratory distress, Respirations: normal, no use of accessory muscles, no retractions, labored breathing, is not present, Breath sounds: are clear throughout, no decreased breath sounds, no stridor, no wheezing, 20:20 Abdomen/GI: Inspection: abdomen appears normal, Bowel sounds: active, all quadrants, Palpation: soft, in all quadrants, moderate abdominal tenderness, in the right lower quadrant and left lower quadrant, rebound tenderness, is not appreciated, involuntary guarding, is not appreciated, 20:20 Back: CVA tenderness, is noted bilaterally, 20:20 Neuro: Orientation: to person, place \T\ time. Mentation: is normal, Motor: moves all fours, strength is normal, Sensation: is normal, 20:56 ECG was reviewed by the Attending Physician. cp Vital Signs: 19:45 BP 129 / 84; Pulse 118; Resp 20; Temp 98.7(O); Pulse Ox 99% on R/A; MAP 101 mmHg; tm6 Weight 65.77 kg; Height 5 ft. 0 in. ; Pain 10/10; 19:46 BP 119 / 87; Pulse 98; Resp 14; Pulse Ox 100% on R/A; tl4 20:45 BP 119 / 81; Pulse 106; Resp 15; Pulse Ox 100% on R/A; Pain 8/10; tl4 21:15 BP 124 / 89; Pulse 106; Resp 19; Pulse Ox 99% on R/A; tl4 22:00 BP 113 / 72; Pulse 97; Resp 18; Pulse Ox 99% on R/A; tl4 23:00 BP 116 / 80; Pulse 100; Resp 18; Pulse Ox 100% ; cp4 01/11 00:00 BP 129 / 90; Pulse 95; Resp 18; Pulse Ox 100% ; cp4 00:00 BP 120 / 82; Pulse 92; Resp 18; Pulse Ox 100% ; cp4 01/10 19:45 Body Mass Index 28.32 (65.77 kg, 152.4 cm) tm6 01/10 19:45 Pain Scale: Adult tm6 20:45 Pain Scale: Adult tl4 MDM: 01/10 19:35 Medical Screening Exam initiated 01/11 00:07 Data reviewed: vital signs, nurses notes, lab test result(s), radiologic studies, CT cp scan, and as a result, I will discharge patient. 00:07 I considered the following discharge prescriptions or medication management in the emergency department Medications were administered in the Emergency Department. See MAR. Counseling: I had a detailed discussion with the patient and/or guardian regarding the historical points, exam findings, and any diagnostic results supporting the discharge/admit diagnosis, lab results, radiology results, the need for outpatient follow up, a family practitioner, to return to the emergency department if symptoms worsen or persist or if there are any questions or concerns that arise at home. Response to treatment: the patient's symptoms have markedly improved after treatment, and as a result, I will discharge patient. ED course: Vital signs stable. Labs and radiology studies reviewed. UA today shows no signs of bacterial infection. At this point will discharge patient home to continue Cipro and to follow-up with her primary care doctor. 01/10 20:02 Order name: Blood Culture Adult (2) cp 01/10 20:02 Order name: CBC with Diff; Complete Time: 21:40 cp 01/10 23:40 Interpretation: Reviewed. cp 01/10 20:02 Order name: CMP; Complete Time: 22:34 cp 01/10 23:39 Interpretation: Normal except: BUN 6; GLOB 3.9; A/G 0.9. cp 01/10 20:02 Order name: Lactate w/ 2H reflex if indic.; Complete Time: 21:40 cp 01/10 23:40 Interpretation: Reviewed. cp 01/10 20:02 Order name: Protime (+inr); Complete Time: 21:40 cp 01/10 20:02 Order name: Ptt, Activated; Complete Time: 21:40 cp 01/10 20:02 Order name: Urinalysis w/ reflexes; Complete Time: 21:40 cp 01/10 21:40 Interpretation: Normal except: [facility] Turbid. 01/10 21:18 Order name: Glucose, Ancillary Testing; Complete Time: 21:40 EDMS 01/10 20:58 Order name: CT Abd/Pelvis - IV Contrast Only cp 01/10 20:02 Order name: Accucheck; Complete Time: 21:10 cp 01/10 20:02 Order name: Cardiac monitoring; Complete Time: 20:03 cp 01/10 20:02 Order name: EKG - Nurse/Tech; Complete Time: 21:10 cp 01/10 20:02 Order name: IV Saline Lock - Large Bore; Complete Time: 20:50 01/10 20:02 Order name: Labs collected and sent; Complete Time: 20:50 cp 01/10 20:02 Order name: O2 Per Protocol; Complete Time: 20:04 cp 01/10 20:02 Order name: O2 Sat Monitoring; Complete Time: 20:04 cp 01/10 20:02 Order name: Vital Signs; Complete Time: 20:50 cp 01/10 23:51 Order name: PO challenge; Complete Time: 00:41 cp EC/08 20:56 Rate is 92 beats/min. Rhythm is regular. [place] interval is normal. QRS interval is normal. cp QT interval is normal. T waves are Inverted in leads aVR, V2, V3. Interpreted by me. Reviewed by me. Administered Medications: 21:14 Drug: NS 0.9% IV (30 ml/kg) 30 ml/kg IV at bolus once; Sepsis Protocol; to be given as tl4 a bolus over 90 minutes Route: IV; Rate: bolus; Site: right antecubital; Delivery: Primary tubing; 22:58 Follow up: Response: No adverse reaction tl4 23:12 Follow up: IV Status: Completed infusion; IV Intake: 1973ml tl4 21:15 Drug: morphine IVP or IV 4 mg IVP once over 4 mins Route: IVP; Infused Over: 4 mins; tl4 Site: right antecubital; 22:57 Follow up: Response: No adverse reaction; Pain is unchanged, physician notified tl4 21:15 Drug: Ondansetron IVP 4 mg IVP once; over 2 minutes Route: IVP; Infused Over: 2 mins; tl4 Site: right antecubital; 22:57 Follow up: Response: No adverse reaction; Nausea is decreased tl4 22:29 Drug: morphine IVP or IV 4 mg IVP once over 4 mins Route: IVP; Infused Over: 4 mins; tl4 Site: right antecubital; 22:57 Follow up: Response: No adverse reaction; Pain is decreased tl4 Disposition Summary: 01/12/24 00:07 Discharge Ordered Notes: Location: Home cp Problem: new cp Symptoms: have improved cp Condition: Stable cp Diagnosis - Low back pain cp - Constipation cp - Nausea with vomiting, unspecified cp Followup: cp - With: Private Physician - When: 1 week - Reason: Recheck today's complaints Discharge Instructions: - Discharge Summary Sheet cp - Acute Back Pain, Adult cp - Constipation, Adult cp - Nausea and Vomiting, Adult cp - Heat Therapy cp - Back Exercises cp Forms: - Medication Reconciliation Form cp - Antibiotic Education cp - Prescription Opioid Use cp - Patient Portal Instructions cp - Leadership Thank You Letter cp Prescriptions: - Dulcolax Stool Softener (dss) 100 mg Oral capsule - take 2 capsule ORAL route 1 to 2 times per day As needed for constipation; 20 cp capsule; Refills: 0, Product Selection Permitted - Ultram 50 mg Oral Tablet - take 1 tablet ORAL route every 6 hours As needed; 12 tablet; Refills: 0, cp Product Selection Permitted - methocarbamol 750 mg Oral tablet - take 1 tablet ORAL route 4 times per day; 30 tablet; Refills: 0, Product cp Selection Permitted Signatures: Dispatcher [employer] EDAman Joseph PA PA cp Masterson, Tawney, RN RN tm6 Carmelo Vaughn RN RN tl4
[2024-01-12 01:12] VITALS: TEMP 98.7
[2024-01-12 01:18] VITALS: O2SAT 100
[2024-01-12 01:19] VITALS: BP 120/82
--- NOTE | 2024-01-13 12:42 | EKG ---
Test Date: 2024-01-11 Test Time: 20:52:48 Maturity Checker: RV MEASUREMENT RESULTS: Intervals: Rate: 92 WI: 160 QRSD: 76 QT: 364 QTc: 450 [place]: P: 65 WI: 160 QRS: 60 T: 18 INTERPRETIVE STATEMENTS: Normal sinus rhythm Cannot rule out Anterior infarct, age undetermined Abnormal ECG No previous ECG available for comparison Electronically Signed On 01-13-24 12:39:21 BOBJ DEVELOPER by Waldo Ahn
== END 2024-01-12 00:45 | disposition home or self-care (01) ==
LOC: ER 19:16
DX: M54.50 Low back pain, unspecified (principal); K59.00 Constipation, unspecified; R11.2 Nausea with vomiting, unspecified; Z98.84 Bariatric surgery status
CPT/HCPCS: 93005; 87040 ×2; 85025; 36415; 85610; 82947; 83605; 85730; 81003; 80053; 74177; Q9967; J2405; J7030; 96365; 96366; 96375; 99285

== ENCOUNTER 2024-01-26 15:41 | Inpatient (IN) | payer OTHER ==
[2024-01-26 16:53] LABS: Absolute Basophils 0.1 K/uL (0-0.5); Absolute Lymphocytes (CBC) 1.2 K/uL (0.7-4.9); Absolute Monocytes 0.3 K/uL (0.1-1.3); Absolute Neutrophil 8.1 K/uL (1.8-8.0); Basophils % 0.5 % (0-1.3); Eosinophils % 0.1 % (0-4.4); Hematocrit 39.9 % (36.0-45.0); Hemoglobin 13.6 g/dL (12.0-15.0); MCH 32.8 pg (27.0-35.0); MCV 96.6 fL (80-100); MPV 8.4 fL (7.6-11.3); Monocytes % 3.3 % (3.3-12.3); Neutrophils % 84.1 % (41.7-73.7); Platelets 323 thou/uL (152-406); RBC Red Blood Cell Count 4.13 M/uL (3.86-4.86); Red Cell Distribution Width 13.8 % (12.1-15.2)
[2024-01-26 16:55] LABS: Specific Gravity 1.024 (1.005-1.030); Urine Bacteria <20 /HPF (<20); Urine Bilirubin NEGATIVE (Negative); Urine Blood Negative (Negative); Urine Clarity Extremely Turbid (Clear); Urine Color Yellow (Yellow); Urine Culture Reflex Order NOT NEEDED; Urine Glucose NEGATIVE (Negative); Urine Ketones 2+ (Negative); Urine Microscopic Reflex YN ORDER UMIC; Urine Nitrite 2+ (Negative); Urine Protein TRACE (Negative); Urine RBC <5 /HPF (None Seen); Urine Urobilinogen Normal (Normal); Urine pH 6.5 (5.0-7.0)
[2024-01-26 17:10] LABS: Albumin 3.8 g/dL (3.4-5.0); Albumin/Globulin Ratio 1.1 (1.1-1.8); Anion Gap 11.2 mEq/L (5.0-15.0); Bilirubin Total 0.6 mg/dL (0.2-1.0); Globulin 3.6 g/dL (2.3-3.5); Potassium 4.2 mEq/L (3.5-5.1); Protein, Total 7.4 g/dL (6.4-8.2)
[2024-01-26] MEDS ORDERED: FENTANYL CITR 100 MCG/2 ML ONE (17:15)
[2024-01-26] MEDS ORDERED: ONDANSETRON 4 MG/2 ML VIAL ONE (17:15)
[2024-01-26] MEDS ORDERED: NA CHLORIDE 0.9% 1,000 ML ONE (17:16)
--- NOTE | 2024-01-26 18:16 | EDPHYS ---
Physician Documentation [facility] Name: Amber José Age: 38 yrs Sex: Female : 1985 Arrival Date: 01/26/2024 Time: 15:41 Bed 17 Private MD: ED Physician Eben Ordonez HPI: 01/25 18:03 This 38 yrs old Female presents to ER via Ambulatory with complaints of dr5 Vomiting, Abnormal Lab Results. 18:03 Onset: The symptoms/episode began/occurred acutely. 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 Patient states that she had a urine culture completed that shows resistant to all antibiotics except meropenem, imipenem, and amikacin.. Historical: - Allergies: 16:22 anti inflammatory drugs; cm10 16:22 Benadryl; cm10 16:22 dermabond; cm10 - PMHx: 16:22 RA; cm10 - PSHx: 16:22 abdominoplasty; section; Gastric Bypass; hernia; cm10 - Immunization history:: Adult Immunizations up to date. - Infectious Disease History:: ESBL, . - Social history:: Smoking status: Patient denies any tobacco usage or history of. ROS: 18:03 Constitutional: as per hpi dr5 Exam: 18:03 Constitutional: This is a well developed, well nourished patient who is awake, alert, dr5 and in no acute distress. Head/Face: Normocephalic, atraumatic. Eyes: Pupils equal round and reactive to light, extra-ocular motions intact. Lids and lashes normal. Conjunctiva and sclera are non-icteric and not injected. Cornea within normal limits. Periorbital areas with no swelling, redness, or edema. ENT: Nares patent. No nasal discharge, no septal abnormalities noted. Tympanic membranes are normal and external auditory canals are clear. Oropharynx with no redness, swelling, or masses, exudates, or evidence of obstruction, uvula midline. Mucous membranes moist. Chest/axilla: Normal chest wall appearance and motion. Nontender with no deformity. No lesions are appreciated. Cardiovascular: Regular rate and rhythm with a normal S1 and S2. Normal PMI, no JVD. No pulse deficits. Respiratory: Lungs have equal breath sounds bilaterally, clear to auscultation. No rales, rhonchi or wheezes noted. No increased work of breathing, no retractions or nasal flaring. 18:03 Skin: Warm, dry with normal turgor. Normal color with no rashes, no lesions, and no evidence of cellulitis. Neuro: Awake and alert, GCS 15, oriented to person, place, time, and situation. Cranial nerves II-XII grossly intact. Motor strength 5/5 in all extremities. Sensory grossly intact. Cerebellar exam normal. Normal gait. 18:03 Back: CVA tenderness, that is severe, is noted bilaterally, Vital Signs: 16:20 BP 133 / 97; Pulse 100; Resp 19; Temp 98.4(O); Pulse Ox 100% on R/A; Weight 63.5 kg; cm10 Height 5 ft. 0 in. ; Pain 10/10; 17:44 BP 120 / 78; Pulse 81; Resp 17; Pulse Ox 98% on R/A; rs5 18:32 BP 131 / 89; Pulse 80; Resp 17; Pulse Ox 99% on R/A; rs5 16:20 Body Mass Index 27.34 (63.50 kg, 152.4 cm) cm10 16:20 Pain Scale: Adult cm10 MDM: 16:21 Medical Screening Exam initiated dr5 18:03 Differential diagnosis: Nonspecific abd pain, Pyelonephritis, urinary tract infection, dr5 kidney abscess. Data reviewed: vital signs, nurses notes. Consideration of Admission/Observation Patient was admitted/placed on observation. Management of patient was discussed with the following: Hospitalist: Cipriano Martinez. Care significantly affected by the following chronic conditions: ESBL, RA. Care significantly affected by the following Social Determinants of Health: Poor access to healthcare and/or lack of insurance, Poor access to transportation, Problems related to employment. Counseling: I had a detailed discussion with the patient and/or guardian regarding the historical points, exam findings, and any diagnostic results supporting the discharge/admit diagnosis, the presence of at least one elevated blood pressure reading (>120/80) during this emergency department visit, lab results, the need for further work-up and treatment in the hospital. ED course: Discussed with Cipriano. Will get blood cultures x 2, lactic acid, and CT abdomen pelvis to rule out urinary obstruction and rule out abscess. Will start patient on meropenem 1 g and admit if CT comes back normal.. 01/25 16:29 Order name: CBC with Diff; Complete Time: 16:57 dr5 01/25 16:29 Order name: CMP; Complete Time: 17:10 dr5 01/25 16:29 Order name: Urinalysis w/ reflexes; Complete Time: 16:57 dr5 01/25 17:14 Order name: Blood Culture Adult (2) dr5 01/25 17:14 Order name: Urine Culture dr5 01/25 17:14 Order name: Lactate w/ 2H reflex if indic.; Complete Time: 18:37 dr5 01/25 17:27 Order name: Test, Urine; Complete Time: 18:32 dr5 01/25 20:05 Order name: Lactate w/ 2H reflex if indic. EDMS 01/25 20:05 Order name: Magnesium EDMS 01/25 20:05 Order name: Phosphorus EDMS 01/25 20:05 Order name: Urinalysis w/ reflexes EDMS 01/25 20:05 Order name: Basic Metabolic Panel EDMS 01/25 20:05 Order name: Basic Metabolic Panel EDMS 01/25 20:05 Order name: CBC with Automated Diff EDMS 01/25 20:05 Order name: CBC with Automated Diff EDMS 01/25 17:14 Order name: CT Abd/Pelvis - IV Contrast Only; Complete Time: 19:37 dr5 Administered Medications: 17:15 Drug: fentaNYL (PF) IVP 100 mcg IVP once Route: IVP; Site: right antecubital; rs5 17:40 Follow up: Response: No adverse reaction; Pain is decreased rs5 17:15 Drug: Ondansetron IVP 4 mg IVP once; over 2 minutes Route: IVP; Site: right antecubital;rs5 17:40 Follow up: Response: No adverse reaction rs5 17:15 Drug: NS 0.9% IV 1000 ml IV at 1000 ml once; to be given as a bolus over 60 minutes rs5 Route: IV; Rate: 1000 ml; Site: right antecubital; 18:17 Follow up: Response: No adverse reaction; IV Status: Completed infusion; IV Intake: rs5 1000ml 18:20 Drug: Meropenem IV 1 grams IV at per protocol once; (mix in NS 100 mL) Route: IV; Rate: rs5 per protocol; Site: right antecubital; 18:32 Follow up: Response: No adverse reaction rs5 19:15 Follow up: IV Status: Completed infusion; IV Intake: 100ml rg5 Disposition Summary: 01/26/24 18:15 Hospitalization Ordered Notes: Hospitalization Status: Inpatient Admission sb4 Provider: Richard Joyner sb4 Location: Telemetry/MedSurg (Inpatient) sb4 Condition: Fair sb4 Problem: new sb4 Symptoms: are unchanged sb4 Bed/Room Type: Standard sb4 Room Assignment: 401(01/26/24 18:27) cc6 Diagnosis - UTI/ Urinary tract infection, site not specified - ESBL sb4 Forms: - Medication Reconciliation Form sb4 - SBAR form sb4 - Leadership Thank You Letter sb4 Signatures: Dispatcher [employer] Maribell Moyer PA-C PA-C sb4 Randy Mclain RN RN rs5 Julieta José RN RN cm10 Viky Lancaster cc6 Basilio Bryant FNP-C RAISIN SEPARATOR OPERATOR-Cdr5 Cruz Lombardi RN rg5 Corrections: (The following items were deleted from the chart) 18:02 16:22 Infectious Disease History: Denies. cm10 cm10 18:27 18:15 sb4 cc6
--- NOTE | 2024-01-26 18:16 | ER ---
Nurse's Notes [facility] Name: Amber José Age: 38 yrs Sex: Female : 1985 Arrival Date: 01/26/2024 Time: 15:41 Bed 17 Private MD: Diagnosis: UTI/ Urinary tract infection, site not specified-ESBL Presentation: 01/25 16:20 Chief complaint: Patient states: Told she had ESBL in urine 2 weeks ago and told that cm10 she needed to come to the ER but "I was trying to make it past [place] but I am in too much pain." Pt complains of back pain no urinary symptoms. Coronavirus screen: Client denies travel out of the [place] in the last 14 days. Ebola Screen: Patient denies travel to an Ebola-affected area in the 21 days before illness onset. No symptoms or risks identified at this time. Initial Sepsis Screen: Does the patient meet any 2 criteria? HR > 90 bpm. Does the patient have a suspected source of infection? No. Patient's initial sepsis screen is negative. Risk Assessment: Do you want to hurt yourself or someone else? Patient reports no desire to harm self or others. Onset of symptoms is unknown. 16:20 Method Of Arrival: Ambulatory cm10 16:20 Acuity: RACHEAL 2 cm10 Triage Assessment: 16:23 General: Appears in no apparent distress. uncomfortable, Behavior is calm, cooperative. cm10 Neuro: No deficits noted. Level of Consciousness is awake, alert, obeys commands, Oriented to person, place, time, situation, Appropriate for age. Respiratory: No deficits noted. Airway is patent Respiratory effort is even, unlabored, Respiratory pattern is regular, symmetrical. Historical: - Allergies: 16:22 anti inflammatory drugs; cm10 16:22 Benadryl; cm10 16:22 dermabond; cm10 - PMHx: 16:22 RA; cm10 - PSHx: 16:22 abdominoplasty; section; Gastric Bypass; hernia; cm10 - Immunization history:: Adult Immunizations up to date. - Infectious Disease History:: ESBL, . - Social history:: Smoking status: Patient denies any tobacco usage or history of. Screenin:25 [facility] ED Fall Risk Assessment (Adult) History of falling in the last 3 months, rs5 including since admission No falls in past 3 months (0 pts) Confusion or Disorientation No (0 pts) Intoxicated or Sedated No (0 pts) Impaired Gait No (0 pts) Mobility Assist Device Used No (0 pt) Altered Elimination No (0 pt) Score/Fall Risk Level 0 - 2 = Low Risk Oriented to surroundings, Maintained a safe environment. Abuse screen: Denies threats or abuse. Nutritional screening: No deficits noted. Tuberculosis screening: No symptoms or risk factors identified. Assessment: 16:25 General: Appears distressed, uncomfortable, Behavior is cooperative, anxious. Pain: rs5 Complains of pain in lower back Pain currently is 8 out of 10 on a pain scale. Quality of pain is described as aching, Is continuous. Neuro: Level of Consciousness is awake, alert, obeys commands, Oriented to person, place, time, situation. Cardiovascular: Patient's skin is warm and dry. Respiratory: Airway is patent Respiratory effort is even, unlabored, Respiratory pattern is regular, symmetrical. GI: Abdomen is round non-distended, Abd is soft and non tender X 4 quads. Reports nausea. : No signs and/or symptoms were reported regarding the genitourinary system. EENT: No signs and/or symptoms were reported regarding the EENT system. Derm: Skin is intact, Skin is pink, warm \\T\\ dry. Derm: Musculoskeletal: Range of motion: intact in all extremities. 17:37 Reassessment: Patient and/or family updated on plan of care and expected duration. Pain rs5 level reassessed. Patient is alert, oriented x 3, equal unlabored respirations, skin warm/dry/pink. Patient states feeling better. Patient states symptoms have improved. 18:32 Reassessment: Patient and/or family updated on plan of care and expected duration. Pain rs5 level reassessed. Patient is alert, oriented x 3, equal unlabored respirations, skin warm/dry/pink. 19:10 General: Appears in no apparent distress. comfortable, Behavior is calm, cooperative. rg5 19:10 Pain: Denies pain. Neuro: Level of Consciousness is awake, alert, Oriented to person, rg5 place, time. Cardiovascular: Patient's skin is warm and dry. Respiratory: Airway is patent Respiratory effort is even, unlabored, Respiratory pattern is regular, symmetrical. GI: Abdomen is. : No signs and/or symptoms were reported regarding the genitourinary system. EENT: No deficits noted. Derm: Skin is intact, Skin is normal, Skin temperature is warm. Musculoskeletal: Circulation, motion, and sensation intact. Range of motion: intact in all extremities. 19:53 Reassessment: Patient and/or family updated on plan of care and expected duration. Pain rg5 level reassessed. Patient is alert, oriented x 3, equal unlabored respirations, skin warm/dry/pink. Vital Signs: 16:20 BP 133 / 97; Pulse 100; Resp 19; Temp 98.4(O); Pulse Ox 100% on R/A; Weight 63.5 kg; cm10 Height 5 ft. 0 in. ; Pain 10/10; 17:44 BP 120 / 78; Pulse 81; Resp 17; Pulse Ox 98% on R/A; rs5 18:32 BP 131 / 89; Pulse 80; Resp 17; Pulse Ox 99% on R/A; rs5 16:20 Body Mass Index 27.34 (63.50 kg, 152.4 cm) cm10 16:20 Pain Scale: Adult cm10 ED Course: 15:46 Patient arrived in ED. mg5 16:20 Basilio Bryant FNP-C is PHCP. dr5 16:20 Eben Ordonez MD is Attending Physician. dr5 16:22 Triage completed. cm10 16:23 Arm band placed on right wrist. Patient placed in an exam room, on a stretcher. cm10 16:25 Patient has correct armband on for positive identification. Placed in gown. Bed in low rs5 position. Call light in reach. Side rails up X2. 16:25 No provider procedures requiring assistance completed. rs5 16:31 Randy Mclain, THOM is Primary Nurse. rs5 16:35 Inserted saline lock: 22 gauge in right antecubital area, using aseptic technique. rs5 Blood collected. Flushed with 10 mL NS. 18:12 Radiology exam delayed due to test not completed at this time. sm9 18:14 PHCP role handed off by Basilio Bryant FNP-C sb4 18:14 Maribell Casarez PA-C is PHCP. sb4 18:15 Richard Joyner MD is Hospitalizing Provider. sb4 19:07 CT Abd/Pelvis - IV Contrast Only In Process Unspecified. EDMS 19:54 Patient admitted, IV remains in place. rg5 19:55 Provided Education on: needs for admit. rg5 Administered Medications: 17:15 Drug: fentaNYL (PF) IVP 100 mcg IVP once Route: IVP; Site: right antecubital; rs5 17:40 Follow up: Response: No adverse reaction; Pain is decreased rs5 17:15 Drug: Ondansetron IVP 4 mg IVP once; over 2 minutes Route: IVP; Site: right antecubital;rs5 17:40 Follow up: Response: No adverse reaction rs5 17:15 Drug: NS 0.9% IV 1000 ml IV at 1000 ml once; to be given as a bolus over 60 minutes rs5 Route: IV; Rate: 1000 ml; Site: right antecubital; 18:17 Follow up: Response: No adverse reaction; IV Status: Completed infusion; IV Intake: rs5 1000ml 18:20 Drug: Meropenem IV 1 grams IV at per protocol once; (mix in NS 100 mL) Route: IV; Rate: rs5 per protocol; Site: right antecubital; 18:32 Follow up: Response: No adverse reaction rs5 19:15 Follow up: IV Status: Completed infusion; IV Intake: 100ml rg5 Medication: 16:53 VIS not applicable for this client. rs5 Intake: 18:17 IV: 1000ml; Total: 1000ml. rs5 19:15 IV: 100ml; Total: 1100ml. rg5 Outcome: 18:15 Decision to Hospitalize by Provider. sb4 19:53 Admitted to Med/surg accompanied by kevin barba 19:53 Condition: good 19:53 Instructed on the need for admit, 20:33 Patient left the ED. iw Signatures: Dispatcher [employer] EDMS Angeles Wright RN RN iw Maribell Casarez, PA-C PA-C sb4 Randy Mclain RN RN rs5 Julieta José RN RN cm10 Paige Gabriel mg5 Nory Alcaraz 9 Cruz Lombardi RN RN rg5 Basilio Bryant, MACHINE II TRIMMER-C MACHINE II TRIMMER-Cdr5 Corrections: (The following items were deleted from the chart) 18:02 16:22 Infectious Disease History: Denies. cm10 cm10
[2024-01-26] MEDS ORDERED: NA CHLORIDE 0.9% 100 ML ONE (18:24)
[2024-01-26] MEDS ORDERED: Meropenem 1000 MG/VIAL IV ONE (18:24)
[2024-01-26 18:27] LABS: Specific Gravity 1.024 (1.005-1.030)
--- NOTE | 2024-01-26 19:37 | RAD REPORT ---
EXAMINATION: CT Abdomen Pelvis W Contrast CLINICAL INDICATION: Female, 38 years old. ABD PAIN TECHNIQUE: CT abdomen and pelvis was performed, after the administration of IV contrast, [facility]. Axial, sagittal and coronal reconstructions were obtained. One or more of the following dose reduction techniques were used: Automated exposure control, adjustment of the mA and k V according to patient size, and iterative reconstruction. Unless otherwise specified, incidental findings do not require dedicated imaging follow-up. COMPARISON: 01/11/2024 FINDINGS: LOWER CHEST: The visualized lung bases are clear. LIVER: Normal in size and contour. No focal lesion. BILIARY SYSTEM: No suspicious abnormalities. SPLEEN: Normal size. No focal lesion. PANCREAS: No mass, ductal dilation, or chrissy-pancreatic fluid. ADRENALS: Normal; no mass. KIDNEYS: Normal size and contour. No hydronephrosis. No radiopaque calculi. URINARY BLADDER: Suboptimally distended evaluation, however without suspicious findings. GASTROINTESTINAL TRACT: Sequelae of gastric bypass. No evidence of free air, significant intra-abdomi nal free fluid, bowel obstruction or abscess. APPENDIX: Normal appendix. LYMPH NODES: No lymphadenopathy. MUSCULOSKELETAL: No acute or suspicious osseous abnormality. ADDITIONAL FINDINGS: None. IMPRESSION: No acute or concerning abnormalities seen in the abdomen or pelvis. Findings as above.
--- NOTE | 2024-01-26 20:09 | P.HP ---
Certification for Inpatient Patient admitted to: Inpatient With expected LOS: >2 Midnights Practitioner: I am a practitioner with admitting privileges, knowledge of patient current condition, hospital course, and medical plan of care. Services: Services provided to patient in accordance with Admission requirements found in Title 42 Section 412.3 of the Code of Federal Regulations Patient History Date of Service: 01/26/24 Reason for admission: ABDOMINAL pain History of Present Illness: Patient is a 38 year old female with obesity and history of recurrent UTI. She presents with bilateral flank pain radiating to her groin. She has intermittent fever. Denies hematuria. She was seen by her PCP who ordered UCX on January 16. It yielded ESBL organisms. She is here for persistent symptoms. Patient is hemodynamically stable. She has a normal CBC here. Her UA is positive for nitrite. Physical Examination - Physical Exam General: In no apparent distress, Obese HEENT: Atraumatic, Normocephalic Respiratory: Clear to auscultation bilaterally, Normal air movement Gastrointestinal: Other (bilateral CVA tenderness) Neurological: Normal speech - Studies Laboratory Data (last 24 hrs) 01/26/24 01/26/24 16:44 16:44 WBC 9.60 Hgb 13.6 Hct 39.9 Plt Count 323 Sodium 139 Potassium 4.2 BUN 10 Creatinine 0.71 Glucose 91 Total Bilirubin 0.6 AST 34 ALT 38 Alkaline Phosphatase 70 Assessment and Plan - Problems (Diagnosis) (1) Urinary tract infection due to extended-spectrum beta lactamase (ESBL) producing Escherichia coli Current Visit: Yes Status: Acute - Plan Assessment Patient is a 38 year old F with recent dx of ESBL UTI. She has bilateral flank pain. CT A/P negative for stones or hydronephrosis. ESBL UTI PLAN: Admit inpatient Start patient on meropenem and IV fluid Follow blood and urine cx Infectious disease has been consulted DVT ppx Pain control - Advance Directives Does patient have a Living Will: No Does patient have a Durable POA for Healthcare: No
[2024-01-26 21:16] VITALS: BMI 27.3
[2024-01-26] MEDS: HYDROMORPHONE HCL 1 MG/ML INJ IV PRN (21:48)
[2024-01-26] MEDS: NA CHLORIDE 0.9% 1,000 ML IV SCH (21:48)
[2024-01-26 22:19] LABS: Urine Bacteria <20 /HPF (<20); Urine Bilirubin NEGATIVE (Negative); Urine Blood Negative (Negative); Urine Clarity Clear (Clear); Urine Color Light-Yellow (Yellow); Urine Culture Reflex Order NOT NEEDED; Urine Glucose NEGATIVE (Negative); Urine Ketones 4+ (Negative); Urine Microscopic Reflex YN ORDER UMIC; Urine Mucus Slight /HPF (None Seen); Urine Nitrite 1+ (Negative); Urine Protein TRACE (Negative); Urine RBC <5 /HPF (None Seen); Urine Urobilinogen Normal (Normal)
[2024-01-26 22:54] LABS: Specific Gravity > 1.030 (1.005-1.030)
[2024-01-26] MEDS: Meropenem 1,000 MG in NA CHLORIDE 0.9% 100 ML IV SCH (23:57)
[2024-01-26] MEDS: TEMAZEPAM 15 MG CAP PO PRN (23:57)
[2024-01-27 06:34] LABS: Absolute Eosinophils 0.1 K/uL (0-0.5); Absolute Lymphocytes (CBC) 1.6 K/uL (0.7-4.9); Absolute Monocytes 0.5 K/uL (0.1-1.3); Absolute Neutrophil 2.6 K/uL (1.8-8.0); Eosinophils % 2.6 % (0-4.4); Hematocrit 33.9 % (36.0-45.0); Hemoglobin 11.6 g/dL (12.0-15.0); MCH 33.3 pg (27.0-35.0); MCHC 34.2 g/dL (32.0-36.0); MCV 97.4 fL (80-100); Monocytes % 9.6 % (3.3-12.3); Neutrophils % 52.8 % (41.7-73.7); Nucleated Red Blood Cells % 0.1 % (0-0); Platelets 273 thou/uL (152-406); RBC Red Blood Cell Count 3.49 M/uL (3.86-4.86); Red Cell Distribution Width 13.7 % (12.1-15.2)
[2024-01-27 06:48] LABS: Anion Gap 10.1 mEq/L (5.0-15.0); Magnesium 1.9 mg/dL (1.6-2.4); Phosphorus 4.1 mg/dL (2.5-4.9); Potassium 3.1 mEq/L (3.5-5.1)
[2024-01-27] MEDS: ENOXAPARIN 40 MG/0.4 ML SQ SCH (08:13)
[2024-01-27] MEDS: ONDANSETRON 4 MG/2 ML VIAL IV PRN (08:13)
--- NOTE | 2024-01-27 11:01 | P.PN ---
Date of Service: 01/27/24 Subjective: Still with back pain Mild improvement overnight No fevers ROS: 10 point ROS as noted above, otherwise negative Physical exam GEN: Alert, oriented, NAD HEENT: Normal conjunctiva, sclera anicteric CV: Regular rate and rhythm, no edema Pulm: Nonlabored respirations on room air ABD: Soft, nontender, nondistended, + CVA tenderness bilateral MSK: No joint tenderness Integumentary: No rashes Neuro: Normal speech, normal affect Vitals reviewed Problem List E. coli ESBL UTI-POA (culture from outside hospital 01/16) Back pain History of gastric bypass Plan E. coli ESBL UTI-POA (culture from outside hospital 01/16) Back pain CT negative for pyelonephritis/obstructive uropathy/renal abscess Repeat blood culture/urine culture Continue IV meropenem History of complex bacteremia/UTI in 2018 requiring very prolonged IV antibiotics Has had recent bacteremia 12/17 with E. coli Patient had taken oral antibiotics and blood cultures have been negative since then Await blood/urine cultures, ID consulted As needed pain medications, antiemetics History of gastric bypass Noted VTE: Lovenox Code: Full Dispo: 2 to 3 days Time Spent Managing Pts Care (In Minutes): 35
[2024-01-27] MEDS: FLU (Fluarix Triv) TS24-25(6MOS UP)/PF 45 MCG/0.5 ML Syringe IM ONE (12:26)
[2024-01-27] MEDS: HYDROCODONE/APAP 5/325 MG TAB PO PRN (12:27)
[2024-01-27] MEDS: ACETAMINOPHEN 500 MG TAB PO PRN (19:42)
--- NOTE | 2024-01-27 22:38 | CON ---
History Of Present Illness: This is a 38-year-old female. I was consulted for recurrent urinary tra ct infection. The patient has been having challenges with her urinary tract infection since 2019. S he had stomach bypass done in 2017, 18 times, and after that she started having trouble with urinary tract infection. She has seen a uro-oncologist who did not find any challenges with her internal org ans as per the patient. She has been getting recurrent urinary tract infection with multidrug-resist ant bacteria. This time, she is coming in with 4+ gram-negative rods in her urine, backache, bilater al flank pain, groin pain with burning urination, fever. Denies any blood in the urine. She has blo od cultures done on January 16 which grew ESBL organism. The patient denies any other problems at t his time, currently getting meropenem without any problems. Past Medical History: History of gastric bypass, recurrent urinary tract infection, ESBL infections. Abdominal CT and pelvis done yesterday showed no acute or concerning abnormalities in abdomen and p karen. Blood culture, no growth for 24 hours. Past Medical History: As per HPI. Social History: Nonsmoker, nondrinker. Family History: Noncontributory. Medications: Meropenem. See MAR for other medications. Allergies: ADHESIVES AND DIPHENHYDRAMINE. Review of Systems: A 10-point review was performed. Physical Examination: General: This is a 38-year-old female, lying in bed, not in any acute cardiopulmonary distress. Vital Signs: Temperature 97.5, pulse 68, respirations 16, blood pressure 153/94. HEENT: Unremarkable. Neck: Supple. Lungs: Basal crackles. Heart: S1, S2. Regular. Abdomen: Soft. Bowel sounds present. Extremities: No edema. Laboratory Data: Shows WBC 4.8, hemoglobin 11.6, platelets are 273. Chemistry shows BUN of 12, crea tinine 0.6. Urinalysis shows wbc 5 to 10, leukocyte esterase negative. Assessment And Plan: A 38-year-old female with recurrent urinary tract infection, recently treated w fabián Lee by primary care doctor as outpatient and recently was treated for bacteremia after urinary tract infection, coming in again with bilateral flank pain and urine cultures growing 4+ gram-negativ e rods. Currently, the patient is on meropenem. I agree with treatment plan of continuing meropenem for total of 7 days. Recommend the patient to see another urologist since she has seen the last uro logist in 2019 to re-evaluate for her urinary tract system. Continue supportive care, hydration, and monitor signs of infection with WBC and fever trend. Thank you for consult. VIRIDIANA/SHANTI Voice ID: [id number] Report ID: [id number]
--- NOTE | 2024-01-28 09:45 | P.PN ---
Date of Service: 01/28/24 Subjective: Still with back pain Mild improvement overnight No fevers ROS: 10 point ROS as noted above, otherwise negative Physical exam GEN: Alert, oriented, NAD HEENT: Normal conjunctiva, sclera anicteric CV: Regular rate and rhythm, no edema Pulm: Nonlabored respirations on room air ABD: Soft, nontender, nondistended, + CVA tenderness bilateral MSK: No joint tenderness Integumentary: No rashes Neuro: Normal speech, normal affect Vitals reviewed Problem List E. coli ESBL UTI-POA (culture from outside hospital 01/16) Back pain History of gastric bypass Plan E. coli ESBL UTI-POA (culture from outside hospital 01/16) Back pain CT negative for pyelonephritis/obstructive uropathy/renal abscess Blood cultures with no growth at 24 hours, urine culture positive for E. coli ESBL Continue IV meropenem/Invanz through 02/01 History of complex bacteremia/UTI in 2018 requiring very prolonged IV antibiotics Has had recent bacteremia 12/17 with E. coli Patient had taken oral antibiotics and blood cultures have been negative since then PICC and OP ABX ordered As needed pain medications, antiemetics History of gastric bypass Noted VTE: Lovenox Code: Full Dispo: 2 to 3 days Time Spent Managing Pts Care (In Minutes): 35
[2024-01-28 11:11] VITALS: O2SAT 98
[2024-01-28] MEDS: PHENAZOPYRIDINE 100MG TAB PO PRN (13:32)
[2024-01-28 16:26] VITALS: BP 158/94; TEMP 97.7
[2024-01-28] MEDS: ERTAPENEM NA 1 GM in NA CHLORIDE 0.9% 100 ML IVPB SCH (16:54)
[2024-01-28] MEDS ORDERED: ERTAPENEM SODIUM 1 GM VIAL IVPB ONE (17:00)
[2024-01-28] MEDS: HYDROMORPHONE HCL 0.5 MG/0.5 ML INJ IV PRN (17:05)
--- NOTE | 2024-01-28 17:28 | RAD REPORT ---
EXAMINATION: ONE VIEW CHEST XR CLINICAL INDICATION: Female, 38 years old.,PICC placement TECHNIQUE: Frontal chest projection is submitted. Examination is limited by patient positioning and t echnique. COMPARISON: 08/23/2023 FINDINGS: Right arm PICC has been placed, with tip projecting at the level of the mid to distal SVC. The lungs are well inflated and clear. No pneumothorax or sizable effusion. The heart is normal in size. Mediastinal contours are unremarkable. Mild dextroconvex midthoracic scoliosis again seen. IMPRESSION: Satisfactory right arm PICC positioning. No acute intrathoracic abnormalities.
[2024-01-28] MEDS ORDERED: Mupirocin NASAL 2 APPL/1 GM TUBE NAS SCH (21:00)
== END 2024-01-28 19:25 | disposition home health service (06) | DRG 690 ==
LOC: ER 15:41 → 4TH 20:01
PROVIDERS: ADMIT Internal Medicine; ATTEND Hospitalist
PROC: 02HV33Z Insertion of Infusion Device into Superior Vena Cava, Percutaneous Approach (ICD-10-PCS; principal; 2024-01-28)
DX: N39.0 Urinary tract infection, site not specified (principal); Z16.20 Resistance to unspecified antibiotic; Z16.12 Extended spectrum beta lactamase (ESBL) resistance; E66.9 Obesity, unspecified; B96.20 Unspecified Escherichia coli [E. coli] as the cause of diseases classified elsewhere; Z56.0 Unemployment, unspecified; Z88.8 Allergy status to other drugs, medicaments and biological substances; Z98.84 Bariatric surgery status; Z59.82 Transportation insecurity; Z59.71 Insufficient health insurance coverage; Z68.27 Body mass index [BMI] 27.0-27.9, adult
CPT/HCPCS: 36415; 71045; 74177; 80048; 80053; 81001; 81025; 83605; 83735; 84100; 85025; 87040; 87077; 87086; 87088; 87186; J1171; J1335; J1650; J2185; J2405; J3010; J7030; Q9967

== ENCOUNTER 2024-06-03 02:52 | Inpatient (IN) | payer OTHER ==
[2024-06-03] MEDS ORDERED: ONDANSETRON 4 MG/2 ML VIAL ONE (03:41)
[2024-06-03] MEDS ORDERED: CEFTRIAXONE 1000 MG/VIAL ONE (03:41)
[2024-06-03] MEDS ORDERED: MORPHINE 4 MG/ML SYR ONE (03:42)
[2024-06-03] MEDS ORDERED: FAMOTIDINE 20 MG/2 ML VIAL IV ONE (03:42)
[2024-06-03] MEDS ORDERED: MORPHINE 2 MG/ML SYR ONE ×2 (03:42→16:06)
[2024-06-03] MEDS ORDERED: KETOROLAC 30 MG/ML INJ ONE (03:42)
[2024-06-03] MEDS ORDERED: METRONIDAZOLE 500mg IVPB 500 MG/100 ML BAG IV ONE (03:42)
[2024-06-03] MEDS ORDERED: NA CHLORIDE 0.9% 1,000 ML ONE ×3 (03:43→15:17)
[2024-06-03 04:03] LABS: Absolute Eosinophils 0.1 K/uL (0-0.5); Absolute Lymphocytes (CBC) 0.8 K/uL (0.7-4.9); Absolute Monocytes 1.7 K/uL (0.1-1.3); Absolute Neutrophil 8.7 K/uL (1.8-8.0); Basophils % 0.3 % (0-1.3); Eosinophils % 0.6 % (0-4.4); Hematocrit 32.3 % (36.0-45.0); Hemoglobin 11.3 g/dL (12.0-15.0); Lymphocytes % 6.9 % (15.3-44.8); MCH 30.3 pg (27.0-35.0); MCHC 34.9 g/dL (32.0-36.0); MCV 86.7 fL (80-100); MPV 8.9 fL (7.6-11.3); Monocytes % 14.7 % (3.3-12.3); Neutrophils % 77.5 % (41.7-73.7); Platelets 227 thou/uL (152-406); RBC Red Blood Cell Count 3.73 M/uL (3.86-4.86); Red Cell Distribution Width 14.3 % (12.1-15.2)
[2024-06-03 04:14] LABS: Albumin 2.5 g/dL (3.4-5.0); Albumin/Globulin Ratio 0.6 (1.1-1.8); Anion Gap 9.6 mEq/L (5.0-15.0); Bilirubin Total 0.5 mg/dL (0.2-1.0); Globulin 4.2 g/dL (2.3-3.5); Potassium 3.6 mEq/L (3.5-5.1); Protein, Total 6.7 g/dL (6.4-8.2)
[2024-06-03 04:23] LABS: Influenza A Ag Negative; Influenza B Ag Negative; SARS-CoV-2 Antigen Rapid Res Negative (Negative)
[2024-06-03 04:34] LABS: Specific Gravity 1.012 (1.005-1.030)
[2024-06-03 04:36] LABS: Specific Gravity 1.012 (1.005-1.030); Urine Bacteria 20-50 /HPF (<20); Urine Bilirubin NEGATIVE (Negative); Urine Blood 3+ (Negative); Urine Clarity Extremely Turbid (Clear); Urine Color Orange (Yellow); Urine Culture Reflex Order REFLEXED; Urine Glucose NEGATIVE (Negative); Urine Ketones NEGATIVE (Negative); Urine Microscopic Reflex YN NO UMIC; Urine Mucus 1+ /HPF (None Seen); Urine Nitrite NEGATIVE (Negative); Urine Protein 2+ (Negative); Urine RBC >50 /HPF (None Seen); Urine Urobilinogen Normal (Normal); Urine WBC >50 /HPF (<5); Urine WBC Clump Many /HPF (None Seen); Urine pH 5.5 (5.0-7.0)
--- NOTE | 2024-06-03 06:48 | ER ---
Nurse's Notes [facility] Name: Amber José Age: 39 yrs Sex: Female : 1985 Arrival Date: 06/03/2024 Time: 02:52 Bed 6 Private MD: Diagnosis: Pyelonephritis acute;History of ESBL E. coli urinary tract infection Presentation: 06/03 03:05 Coronavirus screen: Client denies travel out of the [place] in the last 14 days. Ebola ha1 Screen: No symptoms or risks identified at this time. Initial Sepsis Screen: Does the patient meet any 2 criteria? No. Patient's initial sepsis screen is negative. Does the patient have a suspected source of infection? No. Patient's initial sepsis screen is negative. Risk Assessment: Do you want to hurt yourself or someone else? Patient reports no desire to harm self or others. 03:05 Method Of Arrival: Ambulatory ha1 03:05 Acuity: RACHEAL 3 ha1 03:31 Chief complaint: Patient states: I have been having some flank tenderness, fever and bm8 body aches for 2 days. Coronavirus screen: Vaccine status: Patient reports receiving the 2nd dose of the covid vaccine. Ebola Screen: Patient negative for fever greater than or equal to 101.5 degrees Fahrenheit, and additional compatible Ebola Virus Disease symptoms Patient denies exposure to infectious person. Patient denies travel to an Ebola-affected area in the 21 days before illness onset. No symptoms or risks identified at this time. Initial Sepsis Screen: Does the patient meet any 2 criteria? HR > 90 bpm. Does the patient have a suspected source of infection? No. Patient's initial sepsis screen is negative. Risk Assessment: Do you want to hurt yourself or someone else? Patient reports no desire to harm self or others. Onset of symptoms was June 02, 2024 at 08:00. 03:31 Method Of Arrival: Ambulatory bm8 03:31 Acuity: RACHEAL 3 bm8 Triage Assessment: 03:33 General: Appears in no apparent distress. comfortable, Behavior is calm, cooperative, bm8 appropriate for age. Pain: Complains of pain in suprapubic area, posterior aspect of right lateral abdomen, anterior aspect of right lateral abdomen, posterior aspect of left lateral abdomen and anterior aspect of left lateral abdomen Pain currently is 8 out of 10 on a pain scale. 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 - Infectious Disease History:: Denies. - Social history:: Smoking status: Patient denies any tobacco usage or history of. Patient uses alcohol, occasionally. Patient/guardian denies using street drugs. - Family history:: not pertinent. Screenin:34 [facility] ED Fall Risk Assessment (Adult) History of falling in the last 3 months, ha1 including since admission No falls in past 3 months (0 pts) Confusion or Disorientation No (0 pts) Intoxicated or Sedated No (0 pts) Impaired Gait No (0 pts) Mobility Assist Device Used No (0 pt) Altered Elimination No (0 pt) Score/Fall Risk Level 0 - 2 = Low Risk Oriented to surroundings, Maintained a safe environment, Educated pt \T\ family on fall prevention, incl call for assistance when getting out of bed, Hourly rounding (assess needs \T\ fall precautionary measures) done. Abuse screen: Denies threats or abuse. Denies injuries from another. Nutritional screening: No deficits noted. Tuberculosis screening: No symptoms or risk factors identified. Assessment: 06:33 Reassessment: Patient appears in no apparent distress at this time. Patient and/or bm8 family updated on plan of care and expected duration. Pain level reassessed. Patient is alert, oriented x 3, equal unlabored respirations, skin warm/dry/pink. pt reports that pain is completely unchanged. Is diaphoretic Patient states symptoms have not improved. General: Appears in no apparent distress. comfortable, Behavior is calm, cooperative, appropriate for age. Pain: Complains of pain in anterior aspect of left lateral abdomen and posterior aspect of left lateral abdomen and anterior aspect of right lateral abdomen and posterior aspect of right lateral abdomen Pain currently is 8 out of 10 on a pain scale. Neuro: No deficits noted. Level of Consciousness is awake, alert, obeys commands, Oriented to person, place, time, situation, Appropriate for age. 07:30 Reassessment: Patient appears in no apparent distress at this time. Patient and/or iw family updated on plan of care and expected duration. Pain level reassessed. Patient is alert, oriented x 3, equal unlabored respirations, skin warm/dry/pink. Vital Signs: 03:05 BP 150 / 107; Pulse 105; Resp 20 S; Temp 99.5(O); Pulse Ox 99% on R/A; Weight 64.41 kg; ha1 Height 5 ft. 2 in. ; 03:31 BP 150 / 107; Pulse 105; Resp 19; Temp 99.5; Pulse Ox 99% ; Weight 65.77 kg; Height 5 bm8 ft. 0 in. ; Pain 8/10; 06:33 BP 116 / 87; Pulse 82; Resp 18; Temp 99.5; Pulse Ox 98% ; Pain 8/10; bm8 03:31 Body Mass Index 28.32 (65.77 kg, 152.4 cm) bm8 03:31 Pain Scale: Adult bm8 06:33 Pain Scale: Adult bm8 Anne-Marie Coma Score: 06:33 Eye Response: spontaneous(4). Motor Response: obeys commands(6). Verbal Response: bm8 oriented(5). Total: 15. 21:14 Eye Response: spontaneous(4). Motor Response: obeys commands(6). Verbal Response: sp4 oriented(5). Total: 15. ED Course: 02:57 Patient arrived in ED. gm2 03:12 Yemi Ramires MD is Attending Physician. sp4 03:23 Radiology exam delayed due to test not completed at this time. jg6 03:30 Inserted saline lock: 22 gauge in left antecubital area, using aseptic technique. Blood bm8 collected. Flushed with 10 mL NS. 03:30 Initial lab(s) drawn, by me, sent to lab. First set of blood cultures drawn by ED bm8 staff. Patient maintains SpO2 saturation greater than 95% on room air. 03:33 Triage completed. bm8 03:33 Arm band placed on right wrist. bm8 03:42 CBC with Diff Sent. vk 03:42 CMP Sent. vk 03:42 Lipase Sent. vk 03:42 Test, Urine Sent. vk 03:42 Urinalysis w/ reflexes Sent. vk 03:42 COVID-19 Ag + Flu A+B Ag Sent. vk 03:56 Nick Alejandra, RN is Primary Nurse. bm8 04:24 CT Abd/Pelvis - Without Contrast In Process Unspecified. EDMS 06:33 Patient has correct armband on for positive identification. Placed in gown. Bed in low bm8 position. Call light in reach. Side rails up X2. Client placed on continuous cardiac and pulse oximetry monitoring. NIBP monitoring applied. Pulse ox on. NIBP on. Door closed. Noise minimized. Warm blanket given. Pillow given. Verbal reassurance given. Head of bed lowered. 06:33 No provider procedures requiring assistance completed. bm8 06:44 Jose L Leonard is Hospitalizing Provider. sp4 19:29 Provided Education on: admission education. dd2 19:29 Patient admitted, IV remains in place. dd2 Administered Medications: 03:56 Drug: Famotidine IVP 20 mg IVP once; dilute with 10 mL 0.9% NaCl; give over 2 minutes bm8 Route: IVP; Site: left antecubital; 06:40 Follow up: Response: No adverse reaction bm8 03:56 Drug: TORadol - Ketorolac IVP 30 mg IVP once Route: IVP; Site: left antecubital; bm8 06:41 Follow up: Response: No adverse reaction bm8 03:56 Drug: Ondansetron IVP 8 mg IVP once; over 2 minutes Route: IVP; Site: left antecubital; bm8 06:41 Follow up: Response: No adverse reaction bm8 03:56 Drug: morphine IVP or IV 6 mg IVP once over 4 mins Route: IVP; Infused Over: 4 mins; bm8 Site: left antecubital; 06:41 Follow up: Response: No adverse reaction bm8 03:56 Drug: NS 0.9% IV 1000 ml IV at 1 bolus Per protocol; to be given as a bolus over 60 bm8 minutes Route: IV; Rate: 1 bolus; Site: left antecubital; 06:40 Follow up: Response: No adverse reaction; IV Status: Completed infusion bm8 03:56 Drug: Rocephin - Rocephin (cefTRIAXone) IVPB 1 grams IVPB once over 30 mins; (mix in 50 bm8 mL NS) Route: IVPB; Infused Over: 30 mins; Site: left antecubital; 06:40 Follow up: Response: No adverse reaction; IV Status: Completed infusion bm8 03:56 Drug: metroNIDAZOLE IVPB 500 mg 100 ml IVPB at 200 ml/hr once over 30 mins Volume: 100 bm8 ml; Route: IVPB; Rate: 200 ml/hr; Infused Over: 30 mins; Site: left antecubital; 07:10 Follow up: IV Status: Completed infusion iw 07:02 Drug: fentaNYL (PF) IVP 50 mcg IVP once Route: IVP; Site: left antecubital; bm8 08:28 Follow up: Response: No adverse reaction; Pain is decreased iw 07:02 Drug: NS 0.9% IV 1000 ml IV at 125 ml/hr Per protocol; to be given as a bolus over 60 bm8 minutes Route: IV; Rate: 125 ml/hr; Site: left antecubital; 08:28 Follow up: IV Status: Infusion continued upon admission iw 07:43 Drug: Meropenem IV 1 grams IV at calculated rate once; (mix in NS 100 mL) Route: IV; iw Rate: calculated rate; Site: left antecubital; 08:20 Follow up: IV Status: Completed infusion iw Medication: 06:33 VIS not applicable for this client. bm8 Outcome: 06:47 Decision to Hospitalize by Provider. sp4 19:29 Admitted to ER Hold. Please see [facility] for further documentation. dd2 19:29 Condition: stable 19:29 Instructed on the need for admit, Demonstrated understanding of instructions, 20:31 Patient left the ED. dd2 Signatures: Dispatcher [employer] EDAngeles Justice RN RN iw Sonia Joshi jg6 Pascale Harrison RN RN ha1 Yemi Ramires MD MD sp4 Briseida Mackey gmRos Spear Brad, RN RN bm8 REYNALDO KEY RN RN dd2 Corrections: (The following items were deleted from the chart) 03:34 03:05 Chief complaint: Patient states: PAIN AT THE PELVIC THAT RADIATES TO BILATERAL ha1 KNEES, BURNING WITH URINATION, BACK PAIN, BODY CHILLS, AND FEVER ha1
--- NOTE | 2024-06-03 06:48 | EDPHYS ---
Physician Documentation [facility] Name: Amber José Age: 39 yrs Sex: Female : 1985 Arrival Date: 06/03/2024 Time: 02:52 Bed 6 Private MD: ED Physician Yemi Ramires HPI: 06/03 03:12 This 39 yrs old Female presents to ER via Unassigned with complaints of Pain sp4 All Over, Fever. 06:47 . sp4 21:13 Presents with acute onset of fever, night sweats, pain and burning with urination, and sp4 bilateral back pain . 21:14 Patient reports symptom onset 2 days prior to arrival. Patient reports history of ESBL sp4 E. coli infection. 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 - Infectious Disease History:: Denies. - Social history:: Smoking status: Patient denies any tobacco usage or history of. Patient uses alcohol, occasionally. Patient/guardian denies using street drugs. - Family history:: not pertinent. ROS: 21:14 Constitutional: Positive for fever, positive chills, positive night sweats, positive sp4 dysuria, positive bilateral flank pain 21:14 All other systems are negative, Exam: 21:14 Constitutional: This is a well developed, well nourished patient who is awake, alert, sp4 and in no acute distress. Head/Face: Normocephalic, atraumatic. Eyes: Pupils equal round and reactive to light, extra-ocular motions intact. Lids and lashes normal. Conjunctiva and sclera are not injected. Cornea within normal limits. Periorbital areas with no swelling, redness, or edema. ENT: Nares patent. No nasal discharge, no septal abnormalities noted. Tympanic membranes are normal and external auditory canals are clear. Oropharynx with no redness, swelling, or masses, exudates, or evidence of obstruction, uvula midline. Mucous membranes moist. Neck: Trachea midline, no thyromegaly or masses palpated, and no cervical lymphadenopathy. Supple, full range of motion without nuchal rigidity, or vertebral point tenderness. Chest/axilla: Normal chest wall appearance and motion. Nontender with no deformity. No lesions are appreciated. Cardiovascular: Regular rate and rhythm with a normal S1 and S2. No gallops, murmurs, or rubs. Normal PMI, no JVD. No pulse deficits. Respiratory: Lungs have equal breath sounds bilaterally, clear to auscultation and percussion. No rales, rhonchi or wheezes noted. No increased work of breathing, no retractions or nasal flaring. Abdomen/GI: Soft, with normal bowel sounds. No distension or tympany. No guarding or rebound. No evidence of tenderness throughout. Back: No spinal tenderness. No costovertebral tenderness. Skin: Warm, dry with normal turgor. Normal color with no rashes, no lesions, and no evidence of cellulitis. MS/ Extremity: Pulses equal, no cyanosis. Neurovascular intact. Full, normal range of motion. Neuro: Awake and alert, GCS 15, oriented to person, place, time, and situation. Cranial nerves II-XII grossly intact. Motor strength 5/5 in all extremities. Sensory grossly intact. Psych: Awake, alert, with orientation to person, place and time. Behavior, mood, and affect are within normal limits Vital Signs: 03:05 BP 150 / 107; Pulse 105; Resp 20 S; Temp 99.5(O); Pulse Ox 99% on R/A; Weight 64.41 kg; ha1 Height 5 ft. 2 in. ; 03:31 BP 150 / 107; Pulse 105; Resp 19; Temp 99.5; Pulse Ox 99% ; Weight 65.77 kg; Height 5 bm8 ft. 0 in. ; Pain 8/10; 06:33 BP 116 / 87; Pulse 82; Resp 18; Temp 99.5; Pulse Ox 98% ; Pain 8/10; bm8 03:31 Body Mass Index 28.32 (65.77 kg, 152.4 cm) bm8 03:31 Pain Scale: Adult bm8 06:33 Pain Scale: Adult bm8 Macclenny Coma Score: 06:33 Eye Response: spontaneous(4). Motor Response: obeys commands(6). Verbal Response: bm8 oriented(5). Total: 15. 21:14 Eye Response: spontaneous(4). Motor Response: obeys commands(6). Verbal Response: sp4 oriented(5). Total: 15. MDM: 03:20 Medical Screening Exam initiated sp4 21:15 Differential diagnosis: viral Infection, bacterial infection, URI, bronchitis, sp4 pneumonia UTI, gastroenteritis. Data reviewed: vital signs, nurses notes, lab test result(s), radiologic studies, CT scan. Consideration of Admission/Observation Patient was admitted/placed on observation. Escalation of care including admission/observation considered. Management of patient was discussed with the following: Hospitalist: Admission team. ED course: Patient was initiated on meropenem secondary to history of ESBL E. coli infection and previous urine culture and sensitivity from January 2024. . 21:17 ED course: CT - IMPRESSION: 1. No acute obstructive or inflammatory process identified. sp4 2. Moderate stool in the colon. No evidence of colitis. 3. Previous gastric bypass. 4. Additional non-emergent findings as above. Electronically signed by: Angelica Leon MD 06/03/2024 06:53 AM. 06/03 03:12 Order name: COVID-19 Ag + Flu A+B Ag; Complete Time: 06:19 sp4 06/03 03:19 Order name: CBC with Diff; Complete Time: 04:20 sp4 06/03 03:19 Order name: CMP; Complete Time: 04:20 sp4 06/03 03:19 Order name: Lipase; Complete Time: 04:20 sp4 06/03 03:19 Order name: Test, Urine; Complete Time: 06:19 sp4 06/03 03:19 Order name: Urinalysis w/ reflexes; Complete Time: 06:19 sp4 06/03 03:19 Order name: Blood Culture Adult (2) sp4 06/03 04:55 Order name: Urine Culture EDFL 06/03 08:04 Order name: Basic Metabolic Panel EDFL 06/03 08:04 Order name: Basic Metabolic Panel EDFL 06/03 08:04 Order name: Basic Metabolic Panel EDFL 06/03 08:04 Order name: Basic Metabolic Panel EDFL 06/03 08:04 Order name: Basic Metabolic Panel EDMS 06/03 08:04 Order name: Basic Metabolic Panel EDMS 06/03 08:04 Order name: Basic Metabolic Panel EDMS 06/03 08:04 Order name: Basic Metabolic Panel EDMS 06/03 08:04 Order name: Magnesium EDMS 06/03 08:04 Order name: Magnesium EDMS 06/03 08:04 Order name: Magnesium EDMS 06/03 08:04 Order name: Magnesium EDMS 06/03 08:04 Order name: Magnesium EDMS 06/03 08:04 Order name: Magnesium EDMS 06/03 08:04 Order name: Magnesium EDMS 06/03 08:04 Order name: Magnesium EDMS 06/03 08:04 Order name: Phosphorus EDMS 06/03 08:04 Order name: Phosphorus EDMS 06/03 08:04 Order name: Phosphorus EDMS 06/03 08:04 Order name: Phosphorus EDMS 06/03 08:04 Order name: Phosphorus EDMS 06/03 08:04 Order name: Phosphorus EDMS 06/03 08:04 Order name: Phosphorus EDMS 06/03 08:04 Order name: Phosphorus EDMS 06/03 08:04 Order name: CBC with Automated Diff EDMS 06/03 08:04 Order name: CBC with Automated Diff EDMS 06/03 08:04 Order name: CBC with Automated Diff EDMS 06/03 08:04 Order name: CBC with Automated Diff EDMS 06/03 08:04 Order name: CBC with Automated Diff EDMS 06/03 08:04 Order name: CBC with Automated Diff EDMS 06/03 08:04 Order name: CBC with Automated Diff EDMS 06/03 08:04 Order name: CBC with Automated Diff EDMS 06/03 03:19 Order name: CT Abd/Pelvis - Without Contrast sp4 06/03 03:19 Order name: IV Saline Lock; Complete Time: 03:31 sp4 06/03 03:19 Order name: Labs collected and sent; Complete Time: 03:31 sp4 Administered Medications: 03:56 Drug: Famotidine IVP 20 mg IVP once; dilute with 10 mL 0.9% NaCl; give over 2 minutes bm8 Route: IVP; Site: left antecubital; 06:40 Follow up: Response: No adverse reaction bm8 03:56 Drug: TORadol - Ketorolac IVP 30 mg IVP once Route: IVP; Site: left antecubital; bm8 06:41 Follow up: Response: No adverse reaction bm8 03:56 Drug: Ondansetron IVP 8 mg IVP once; over 2 minutes Route: IVP; Site: left antecubital; bm8 06:41 Follow up: Response: No adverse reaction bm8 03:56 Drug: morphine IVP or IV 6 mg IVP once over 4 mins Route: IVP; Infused Over: 4 mins; bm8 Site: left antecubital; 06:41 Follow up: Response: No adverse reaction bm8 03:56 Drug: NS 0.9% IV 1000 ml IV at 1 bolus Per protocol; to be given as a bolus over 60 bm8 minutes Route: IV; Rate: 1 bolus; Site: left antecubital; 06:40 Follow up: Response: No adverse reaction; IV Status: Completed infusion bm8 03:56 Drug: Rocephin - Rocephin (cefTRIAXone) IVPB 1 grams IVPB once over 30 mins; (mix in 50 bm8 mL NS) Route: IVPB; Infused Over: 30 mins; Site: left antecubital; 06:40 Follow up: Response: No adverse reaction; IV Status: Completed infusion bm8 03:56 Drug: metroNIDAZOLE IVPB 500 mg 100 ml IVPB at 200 ml/hr once over 30 mins Volume: 100 bm8 ml; Route: IVPB; Rate: 200 ml/hr; Infused Over: 30 mins; Site: left antecubital; 07:10 Follow up: IV Status: Completed infusion iw 07:02 Drug: fentaNYL (PF) IVP 50 mcg IVP once Route: IVP; Site: left antecubital; bm8 08:28 Follow up: Response: No adverse reaction; Pain is decreased iw 07:02 Drug: NS 0.9% IV 1000 ml IV at 125 ml/hr Per protocol; to be given as a bolus over 60 bm8 minutes Route: IV; Rate: 125 ml/hr; Site: left antecubital; 08:28 Follow up: IV Status: Infusion continued upon admission iw 07:43 Drug: Meropenem IV 1 grams IV at calculated rate once; (mix in NS 100 mL) Route: IV; iw Rate: calculated rate; Site: left antecubital; 08:20 Follow up: IV Status: Completed infusion iw Disposition Summary: 06/03/24 06:47 Hospitalization Ordered Notes: Hospitalization Status: Inpatient Admission sp4 Provider: Jose L Leonard sp4 Condition: Stable sp4 Problem: new sp4 Symptoms: have improved sp4 Bed/Room Type: Standard sp4 Location: Telemetry/MedSurg (Inpatient)(06/03/24 18:50) bd Room Assignment: 429(06/03/24 19:40) rv1 Diagnosis - Pyelonephritis acute sp4 - History of ESBL E. coli urinary tract infection sp4 Forms: - Medication Reconciliation Form sp4 - SBAR form sp4 - Leadership Thank You Letter sp4 Signatures: Dispatcher [employer] EDMS Luda Duvall bd Angeles Wright RN RN iw Whitney Montgomery RN RN kb3 Lakshmi Beck rv1 Yemi Ramires MD MD sp4 Nick Alejandra, RN RN bm8 Corrections: (The following items were deleted from the chart) 03:19 03:19 BLOOD CULTURE*+[id number].BRZ ordered. EDMS EDMS 08:39 06:47 Telemetry/MedSurg (Inpatient) sp4 kb3 08:39 06:47 sp4 kb3 18:50 08:39 BR ER HOLD kb3 bd 18:50 08:39 ERHOLD- kb3 bd 19:40 18:50 407 bd rv1
[2024-06-03] MEDS ORDERED: Meropenem 1000 MG/VIAL IV ONE ×2 (06:53→17:50)
[2024-06-03] MEDS ORDERED: FENTANYL CITR 100 MCG/2 ML ONE (06:54)
[2024-06-03] MEDS ORDERED: NA CHLORIDE 0.9% 100 ML ONE ×2 (06:55→17:50)
--- NOTE | 2024-06-03 07:10 | RAD REPORT ---
EXAM: CT Abdomen and Pelvis Without Intravenous Contrast CLINICAL HISTORY: The patient is 39 years old and is Female; Abdominal pain. TECHNIQUE: Axial computed tomography images of the abdomen and pelvis without intravenous contrast. Sagittal and coronal reformatted images were created and reviewed. This CT exam was performed using one or more of the following dose reduction techniques: automated exposure control, adjustmen t of the mA and/or kV according to patient size, and/or use of iterative reconstruction technique. COMPARISON: CT Abdomen Pelvis 01/26/2024. FINDINGS: Lung bases: Unremarkable. No mass. No consolidation. ABDOMEN: Liver: Unremarkable. Gallbladder and bile ducts: Unremarkable. No calcified stones. No ductal dilation. Pancreas: Unremarkable. No ductal dilation. Spleen: Unremarkable. No splenomegaly. Adrenals: Unremarkable. No mass. Kidneys and ureters: No nephrolithiasis or hydronephrosis. Stomach and bowel: Moderate stool in the colon. No evidence of colitis. Previous gastric bypass. Elongated sigmoid colon. No small bowel dilatation or obstruction. PELVIS: Appendix: No findings to suggest acute appendicitis. Bladder: Bladder is nearly empty. No stones. Reproductive: Unremarkable as visualized. ABDOMEN and PELVIS: Intraperitoneal space: Free fluid in the cul-de-sac. No free air. Bones/joints: Scoliosis. No acute fracture visualized. No dislocation. Soft tissues: There are bilateral breast implants. Vasculature: Unremarkable. No abdominal aortic aneurysm. Lymph nodes: No pathologically enlarged lymph nodes. IMPRESSION: 1. No acute obstructive or inflammatory process identified. 2. Moderate stool in the colon. No evidence of colitis. 3. Previous gastric bypass. 4. Additional non-emergent findings as above. Electronically signed by: Angelica Leon MD 06/03/2024 06:53 AM [facility] V2 Due to temporary technical issues with the PACS/Ombit[employer] reporting system, reports are being jerry d by the in-house radiologist without review as a courtesy to ensure prompt reporting the interpreting radiologist is fully responsible for the content of the report. Transcribed Date/Time: 06/03/2024 7:09 AM
[2024-06-03] MEDS ORDERED: ACETAMINOPHEN 325 MG TABLET PO PRN (07:59)
[2024-06-03] MEDS: NA CHLORIDE 0.9% 1,000 ML IV SCH (08:00)
--- NOTE | 2024-06-03 08:13 | P.HP ---
Certification for Inpatient Patient admitted to: Inpatient With expected LOS: >2 Midnights Practitioner: I am a practitioner with admitting privileges, knowledge of patient current condition, hospital course, and medical plan of care. Services: Services provided to patient in accordance with Admission requirements found in Title 42 Section 412.3 of the Code of Federal Regulations Patient History Date of Service: 06/03/24 Reason for admission: Acute bilateral pyelonephritis History of Present Illness: Amber José is a 39 year old female with pmhx of ESBL bacteremia and urine who presented to the ED with bilateral flank and abdominal pain associated with fever, diaphoresis, headache, nausea, and vomiting. She reports not feeling well for a month but symptoms have worsened causing her to come to the ED. She reports seeing infectious disease in [facility] but has stopping going d/t the office being difficult to arrange appointments. She was last discharged on home Invanz with an extra week added based on her repeat urine culture. Significant labs Laboratory evaluation significant for WBC 11.3, H&H 11/32, sodium 127, BUN/creatinine 19/1.31, GFR 53, serum glucose 128, UA suggestive of infectious process. CT abd/pelvis reports 'No acute obstructive or inflammatory process identified. Moderate stool in the colon. No evidence of colitis. Previous gastric bypass." Amber will be admitted to hospitalist service for further treatment of Acute bilateral pyelonephritis complicated with history of ESBL. Allergies adhesive Adverse Reaction (Verified 01/26/24 20:55) Itching/Hives/Rash diphenhydramine Adverse Reaction (Verified 01/26/24 20:55) Itching/Hives/Rash ibuprofen Adverse Reaction (Verified 01/26/24 20:55) Itching/Hives/Rash Home Medications: Temazepam 30 mg PO BEDTIME PRN PRN 01/26/24 Zolpidem Tartrate [Ambien] 10 mg PO BEDTIME PRN PRN 01/26/24 - Past Medical/Surgical History Diabetic: No -: RHEUMATOID ARTHRITIS -: ABDOMINOPLASTY -: -: GASTRIC BYPASS -: HERNIA REPAIR - Social History Smoking Status: Never smoker Alcohol use: No CD- Drugs: No Review of Systems Other: Per HPI Physical Examination - Physical Exam General: Alert, In no apparent distress, Oriented x3 HEENT: Atraumatic, Normocephalic, PERRLA Neck: Supple, 2+ carotid pulse no bruit Respiratory: Clear to auscultation bilaterally, Normal air movement Cardiovascular: Normal pulses, Regular rate/rhythm, Normal S1 S2 Gastrointestinal: Normal bowel sounds, Soft and benign Musculoskeletal: Other (Bilateral flank pain) Integumentary: No rashes Neurological: Normal speech, Normal tone - Studies Laboratory Data (last 24 hrs) 06/03/24 06/03/24 03:32 03:32 WBC 11.30 H Hgb 11.3 L Hct 32.3 L Plt Count 227 Sodium 127 L Potassium 3.6 BUN 19 H Creatinine 1.31 H Glucose 128 H Total Bilirubin 0.5 AST 15 ALT 17 Alkaline Phosphatase 119 H Lipase 33 Assessment and Plan - Plan Assessment and Plan Acute bilateral pyelonephritis History of ESBL Hyperglycemia 2/2 inflammation -merrem IV Q8h -IVF -antiemetics -pain control -Follow blood and urine cultures SERGE 2/2 dehydration Hyponatrema -Gentle IVF -Monitor in AM labs DVT ppx heparin Full code LOS 2-3 days Discharge Plan: Home Plan to discharge in: 48 Hours - Advance Directives Does patient have a Living Will: No Does patient have a Durable POA for Healthcare: No
[2024-06-03] MEDS: Meropenem 1,000 MG in NA CHLORIDE 0.9% 100 ML IV SCH (09:00)
[2024-06-03] MEDS: HEPARIN 5000 UNIT/ML 1 ML VIAL SQ SCH (09:00)
[2024-06-03] MEDS ORDERED: HEPARIN 5000 UNIT/ML 1 ML VIAL ONE ×2 (09:27→17:50)
[2024-06-03] MEDS ORDERED: HYDROCODONE/APAP 7.5/325 MG TAB ONE ×2 (11:45→16:06)
[2024-06-03] MEDS: HYDROCODONE/APAP 7.5/325 MG TAB PO PRN (11:58)
[2024-06-03] MEDS: MORPHINE 2 MG/ML SYR IV PRN (16:09)
[2024-06-03] MEDS: ZOLPIDEM TARTRATE 10 MG TABLET PO PRN (21:53)
[2024-06-04 07:15] LABS: Absolute Lymphocytes (CBC) 0.5 K/uL (0.7-4.9); Absolute Monocytes 0.9 K/uL (0.1-1.3); Absolute Neutrophil 4.3 K/uL (1.8-8.0); Basophils % 0.2 % (0-1.3); Eosinophils % 0.2 % (0-4.4); Hematocrit 31.5 % (36.0-45.0); Hemoglobin 10.9 g/dL (12.0-15.0); Lymphocytes % 9.6 % (15.3-44.8); MCH 30.6 pg (27.0-35.0); MCHC 34.5 g/dL (32.0-36.0); MCV 88.8 fL (80-100); MPV 8.6 fL (7.6-11.3); Nucleated Red Blood Cells % 0.2 % (0-0); Platelets 193 thou/uL (152-406); RBC Red Blood Cell Count 3.54 M/uL (3.86-4.86); Red Cell Distribution Width 13.9 % (12.1-15.2)
[2024-06-04 07:41] LABS: Anion Gap 9.1 mEq/L (5.0-15.0); Phosphorus 3.2 mg/dL (2.5-4.9); Potassium 4.1 mEq/L (3.5-5.1)
[2024-06-04 10:08] VITALS: BMI 28.3
--- NOTE | 2024-06-04 11:59 | CON ---
History Of Present Illness: This is a 39-year-old female, known to me from previous admissions for t he same reason of urinary tract infection secondary to ESBL infection. The patient is coming again 2 weeks after stopping the antibiotic with same symptoms of burning urination, nausea, vomiting. Urin e cultures are growing 4+ gram negative rods. Sensitivity and specificity pending. The patient feel s better today. Denies any other problems. She had ESBL bacteremia in the previous admission, for w hich she was treated for 2 weeks of antibiotic with meropenem. The patient is currently on meropenem . She is being followed by urologist and infectious disease doctor as outpatient. Past Medical History: As per HPI. Social History: Nonsmoker. Nondrinker. Family History: Noncontributory. Medications: Meropenem. See MARs for other medications. Allergies: ADHESIVES, BENADRYL, AND IBUPROFEN. Review of Systems: Ten-point review was performed. Physical Examination: General: This is a 39-year-old female, lying in bed, not in any acute cardiopulmonary distress. Vital Signs: Temperature 97.8, pulse 67, respirations 18, blood pressure 118/72. HEENT: Unremarkable. Neck: Supple. Lungs: Basal crackles. Heart: S1, S2. Regular. Abdomen: Soft, nontender. Bowel sounds present. Extremities: No edema. Laboratory Data: WBC 5.7, down from 11.3; hemoglobin 10.9; platelets are 193. Chemistry shows BUN o f 23, creatinine 1.14. Albumin level of 2.5. Urine shows more than 50 WBCs and more than 50 RBCs. Blood cultures are negative to date. Urine culture is showing gram negative rods, 4+. Assessment And Plan: 1. Urosepsis with leukocytosis, which is improving. 2. Anemia of chronic disease. 3. Renal insufficiency. 4. Pyuria. 5. Hematuria. Continue current antibiotic for 2 weeks. Consider getting urogynecologist appointment for further ev aluation as the patient is getting recurrent urinary tract infections. Her CT abdomen and pelvis is unremarkable except for gastric bypass findings. We will follow the patient closely. Thank you, Dr. Leonard, for consult. NF/SHANTI Voice ID: [id number] Report ID: [id number]
--- NOTE | 2024-06-04 20:50 | P.PN ---
Date of Service: 06/04/24 Subjective Feeling well awaiting cultures to result Continue Merrem ROS; 10 point reviewed Physical Exam General: Alert and Oriented x3, NAD HEENT: Atraumatic, Normocephalic, PERRLA Neck: Supple, 2+ carotid pulse no bruit Respiratory: Clear to auscultation bilaterally, Normal air movement, on RA Cardiovascular: Normal pulses, Regular rate/rhythm, Normal S1 S2 Gastrointestinal: Normal bowel sounds, Soft and benign on palpation Musculoskeletal: Other (Bilateral flank pain) Integumentary: No rashes Neurological: Normal speech, Normal tone Vitals Reviewed Problem list Acute bilateral pyelonephritis History of ESBL Hyperglycemia 2/2 inflammation SERGE 2/2 dehydration Hyponatrema Assessment and Plan Acute bilateral pyelonephritis History of ESBL Hyperglycemia 2/2 inflammation -Cotninue merrem IV Q8h -IVF -antiemetics -pain control -Follow blood and urine cultures -Dr. Huddleston consulte and recommends follow up with urogynecology SERGE 2/2 dehydration Hyponatrema -continue Gentle IVF -Monitor in AM labs -Sodium and kidney function improving DVT ppx heparin Full code LOS 2-3 days Discharge Plan: Home Plan to discharge in: 48 Hours <Rubi Johnson - Last Filed: 06/04/24 20:52> Patient seen and examined. Plan of care discussed with Riki Alex Patient with a history of ESBL infection. Urine culture growing gram-negative rods. Continue IV meropenem Follow cultures Infectious disease Dr. Huddleston evaluated patient. SERGE and hyponatremia improved with IV NS. <dick sebastian - Last Filed: 06/06/24 17:39>
[2024-06-05 06:31] LABS: Absolute Monocytes 0.9 K/uL (0.1-1.3); Absolute Neutrophil 2.7 K/uL (1.8-8.0); Basophils % 0.8 % (0-1.3); Eosinophils % 1.1 % (0-4.4); Hematocrit 32.9 % (36.0-45.0); Hemoglobin 11.2 g/dL (12.0-15.0); Lymphocytes % 21.2 % (15.3-44.8); MCH 30.6 pg (27.0-35.0); MCHC 34.2 g/dL (32.0-36.0); MCV 89.5 fL (80-100); MPV 8.3 fL (7.6-11.3); Monocytes % 18.8 % (3.3-12.3); Neutrophils % 58.1 % (41.7-73.7); Nucleated Red Blood Cells % 0.2 % (0-0); Platelets 250 thou/uL (152-406); RBC Red Blood Cell Count 3.68 M/uL (3.86-4.86); Red Cell Distribution Width 14.1 % (12.1-15.2)
[2024-06-05 06:45] LABS: Anion Gap 8.2 mEq/L (5.0-15.0); Magnesium 3.2 mg/dL (1.6-2.4); Potassium 4.2 mEq/L (3.5-5.1)
[2024-06-05 10:54] VITALS: O2SAT 99
[2024-06-05 12:09] VITALS: BP 147/104; TEMP 97.7
--- NOTE | 2024-06-05 12:18 | P.DS ---
Admission Date: 06/03/24 Discharge Date: 06/05/24 Disposition: ROUTINE DISCHARGE Discharge Condition: GOOD Reason for Admission: Acute bilateral pyelonephritis Brief History of Present Illness: Diagnosis Acute bilateral pyelonephritis History of ESBL Hyperglycemia 2/2 inflammation SERGE 2/2 dehydration Hyponatrema HPI 06/03/24 Amber José is a 39 year old female with pmhx of ESBL bacteremia and urine who presented to the ED with bilateral flank and abdominal pain associated with fever, diaphoresis, headache, nausea, and vomiting. She reports not feeling well for a month but symptoms have worsened causing her to come to the ED. She reports seeing infectious disease in [facility] but has stopping going d/t the office being difficult to arrange appointments. She was last discharged on home Invanz with an extra week added based on her repeat urine culture. Significant labs Laboratory evaluation significant for WBC 11.3, H&H 11/32, sodium 127, BUN/creatinine 19/1.31, GFR 53, serum glucose 128, UA suggestive of infectious process. CT abd/pelvis reports 'No acute obstructive or inflammatory process identified. Moderate stool in the colon. No evidence of colitis. Previous gastric bypass." Amber will be admitted to hospitalist service for further treatment of Acute bilateral pyelonephritis complicated with history of ESBL. Hospital Course: Ambre was admitted and treated for the following diagnosis Acute bilateral pyelonephritis -initial Merrem, Ecoli and streptococcus Agalactiae Grp B History of ESBL -negative for ESBL this admission Hyperglycemia 2/2 inflammation SERGE 2/2 dehydration- improved with IVF Hyponatrema-resolved with IVF On 06/06/23, Amber was seen on morning rounds hemodynamically stable. Dr. Huddleston has evaluated and cleared for discharge on Levaquin and follow up with urogynecology. Physical Exam General: AAO x3, NAD Neck: Supple, 2+ carotid pulse no bruit Respiratory: Clear BBS, Normal air movement, on RA Cardiovascular: Normal pulses, RRR, Normal S1 S2 Gastrointestinal: Soft and benign on palpation Musculoskeletal: Other (Bilateral flank pain) Integumentary: No rashes Neurological: Normal speech, Normal tone Vital Signs/Physical Exam: Temp Pulse Resp BP Pulse Ox 97.7 F 77 18 147/104 H 99 06/05/24 12:00 06/05/24 12:00 06/05/24 12:00 06/05/24 12:00 06/05/24 12:00 Laboratory Data at Discharge: WBC 4.60 thou/uL (4.3-10.9) 06/05/24 06:16 Hgb 11.2 g/dL (12.0-15.0) L 06/05/24 06:16 Hct 32.9 % (36.0-45.0) L 06/05/24 06:16 Plt Count 250 thou/uL (152-406) D 06/05/24 06:16 Sodium 134 mEq/L (136-145) L 06/05/24 06:16 Potassium 4.2 mEq/L (3.5-5.1) 06/05/24 06:16 BUN 20 mg/dL (7-18) H 06/05/24 06:16 Creatinine 0.93 mg/dL (0.55-1.02) 06/05/24 06:16 Glucose 114 mg/dL (74-106) H 06/05/24 06:16 Phosphorus 3.0 mg/dL (2.5-4.9) 06/05/24 06:16 Magnesium 3.2 mg/dL (1.6-2.4) H 06/05/24 06:16 Total Bilirubin 0.5 mg/dL (0.2-1.0) 06/03/24 03:32 AST 15 U/L (15-37) 06/03/24 03:32 ALT 17 U/L (13-56) 06/03/24 03:32 Alkaline Phosphatase 119 U/L (45-117) H 06/03/24 03:32 Lipase 33 U/L (13-75) 06/03/24 03:32 Home Medications: Temazepam 30 mg PO BEDTIME PRN PRN 01/26/24 Zolpidem Tartrate [Ambien] 10 mg PO BEDTIME PRN PRN 01/26/24 Levofloxacin [Levaquin] 750 mg PO DAILY 14 Days #21 tab 06/05/24 New Medications: Levofloxacin [Levaquin] 750 mg PO DAILY 14 Days #21 tab Physician Discharge Instructions: 1. Please call and schedule a follow-up appointment with your PCP in 3-5 days - Please follow-up with your PCP for medication refills/adjustments 2. Please call and schedule a follow-up appointment with infectious disease in 1-2 weeks -Urine culture showing EColi and Streptococcus Agalactiae GrpB- no ESBL found -blood cultures with no growth to date 3. Continue regular diet 4. No activity restrictions 5. Return to the ED if symptoms worsen New medications Levaquin 750 mg daily x 14 days Diet: Regular Activity: Ad nayeli Followup: Carter Huddleston MD [ACTIVE - CAN ADMIT] - 1-2 Weeks OOT,OOT [Primary Care Provider] -
[2024-06-05] MEDS: levoFLOXacin 750 MG TAB PO SCH (12:37)
== END 2024-06-05 13:34 | disposition home or self-care (01) | DRG 690 ==
LOC: ER 02:52 → ERHOLD 07:59 → 4TH 19:53
PROVIDERS: ADMIT Internal Medicine; ATTEND Internal Medicine
DX: N10 Acute pyelonephritis (principal); E87.1 Hypo-osmolality and hyponatremia; N17.9 Acute kidney failure, unspecified; B96.20 Unspecified Escherichia coli [E. coli] as the cause of diseases classified elsewhere; B95.1 Streptococcus, group B, as the cause of diseases classified elsewhere; E86.0 Dehydration; R73.9 Hyperglycemia, unspecified; D63.8 Anemia in other chronic diseases classified elsewhere; N28.9 Disorder of kidney and ureter, unspecified; M06.9 Rheumatoid arthritis, unspecified; Z98.84 Bariatric surgery status; Z88.8 Allergy status to other drugs, medicaments and biological substances; Z11.52 Encounter for screening for COVID-19
CPT/HCPCS: 36415; 74176; 80048; 80053; 81003; 81025; 83690; 83735; 84100; 85025; 87040; 87077; 87086; 87088; 87186; 87428; 96361; 96365; 96366; 96367; 96368; 96375; 99285; J0696; J1644; J2185; J2270; J2405; J3010; J7030

== ENCOUNTER 2024-10-23 17:29 | Emergency (ER) | payer OTHER ==
[2024-10-23 20:12] LABS: Absolute Lymphocytes (CBC) 2.2 K/uL (0.7-4.9); Hematocrit 41.3 % (36.0-45.0); Hemoglobin 13.7 g/dL (12.0-15.0); MCH 30.4 pg (27.0-35.0); MCHC 33.2 g/dL (32.0-36.0); MCV 91.5 fL (80-100); MPV 9.8 fL (7.6-11.3); Nucleated RBC Absolute Count 0.0 (0-0); Nucleated Red Blood Cells % 0.1 % (0-0); RBC Red Blood Cell Count 4.51 M/uL (3.86-4.86); White Blood Count 7.30 thou/uL (4.3-10.9)
[2024-10-23 20:25] LABS: PT Prothrombin Time 11.7 SECONDS (10-13.0); PTT, Activated Partial Thromb 27.2 SECONDS (27.2-37.4); Protime INR 1.04
[2024-10-23 20:35] LABS: ALT/SGPT 27.0 U/L (13-56); AST/SGOT 25.0 U/L (15-37); Albumin 2.8 g/dL (3.4-5.0); Albumin/Globulin Ratio 0.7 (1.1-1.8); Alkaline Phosphatase 102.0 U/L (45-117); Anion Gap 7.8 mEq/L (5.0-15.0); BUN Blood Urea Nitrogen 7.0 mg/dL (7-18); Globulin 4.0 g/dL (2.3-3.5); Glucose Level 89.0 mg/dL (74-106); NT PRO-BNP 112.0 pg/mL (<125); Potassium 3.8 mEq/L (3.5-5.1)
[2024-10-23] MEDS ORDERED: FENTANYL CITR 100 MCG/2 ML ONE (20:55)
[2024-10-23] MEDS ORDERED: CLINDAMYCIN 600MG/D5W 50 ML IV ONE (20:56)
--- NOTE | 2024-10-23 23:44 | RAD REPORT ---
EXAMINATION: Facial Bones W Con Mpr CLINICAL INDICATION: Female, 39 years old. left side facial swelling TECHNIQUE: Axial images were obtained through the facial bones and orbits without intravenous contras t. Sagittal and coronal reconstructions were created from the data. One or more of the following dose reduction techniques were used: Automated exposure control, adjustment of the mA and/or kV accor ding to patient size, and/or iterative reconstruction. Unless otherwise specified, incidental findings do not require dedicated imaging follow-up. [id number]. COMPARISON: No prior exams FINDINGS: SOFT TISSUE: Dental lovely associated with the left mandible second premolar. Partially fractured righ t mandibular third molar with dental lovely. BONES: No evidence of fracture, dislocation, or aggressive osseous lesions. No lesion of the visuali zed skull base or calvarium. ORBITS: The globes are intact. No intraorbital hemorrhage or mass. SINUSES: The paranasal sinuses and tympanomastoid cavities are predominantly clear. BRAIN: No acute abnormalities in the visualized intracranial structures. IMPRESSION: No acute soft tissue findings identified within the face. No abscess identified.
--- NOTE | 2024-10-24 00:35 | ER ---
Nurse's Notes [facility] Name: Amber José Age: 39 yrs Sex: Female : 1985 Arrival Date: 10/23/2024 Time: 17:29 Bed 24 Private MD: Diagnosis: Unspecified acute conjunctivitis, bilateral Presentation: 10/23 17:48 Chief complaint: Patient states: left face and eye swelling that started last week. me1 Took cipro eye gtts and augmentin x 2 days but swelling and pain worsened so PCP, Judith Cardozo, DIRECTOR ACUTE sent to ER for CT scan and possibly IV antibiotics. Pain level 8/10 "pressure". Reports fever this morning. Coronavirus screen: Vaccine status: Patient reports receiving the 2nd dose of the covid vaccine. Ebola Screen: No symptoms or risks identified at this time. Initial Sepsis Screen: Does the patient meet any 2 criteria? HR > 90 bpm. Does the patient have a suspected source of infection? No. Patient's initial sepsis screen is negative. Risk Assessment: Do you want to hurt yourself or someone else? Patient reports no desire to harm self or others. Onset of symptoms is unknown. 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 - Infectious Disease History:: Denies. - Social history:: Smoking status: Patient denies any tobacco usage or history of. Screenin:52 [facility] ED Fall Risk Assessment (Adult) History of falling in the last 3 months, jb4 including since admission No falls in past 3 months (0 pts) Confusion or Disorientation No (0 pts) Intoxicated or Sedated No (0 pts) Impaired Gait No (0 pts) Mobility Assist Device Used No (0 pt) Altered Elimination No (0 pt) Score/Fall Risk Level 0 - 2 = Low Risk Oriented to surroundings, Maintained a safe environment. Abuse screen: Denies threats or abuse. Nutritional screening: No deficits noted. Tuberculosis screening: No symptoms or risk factors identified. Assessment: 19:45 General: Behavior is calm, cooperative, appropriate for age. Pain: Complains of pain in jb4 left eye Pain does not radiate. Pain currently is 8 out of 10 on a pain scale. Neuro: Level of Consciousness is awake, alert, obeys commands, Oriented to person, place, time, situation. Cardiovascular: Patient's skin is warm and dry. Respiratory: Airway is patent Respiratory effort is even, unlabored, Respiratory pattern is regular, symmetrical. EENT: Left eye noted to be swollen shut. Derm: Skin is intact, Skin is pink, warm \\T\\ dry. Musculoskeletal: Circulation, motion, and sensation intact. Range of motion: intact in all extremities. 20:37 Reassessment: Patient appears in no apparent distress at this time. Patient and/or jb4 family updated on plan of care and expected duration. Pain level reassessed. Patient is alert, oriented x 3, equal unlabored respirations, skin warm/dry/pink. 21:51 Reassessment: Patient appears in no apparent distress at this time. Patient and/or jb4 family updated on plan of care and expected duration. Pain level reassessed. Patient is alert, oriented x 3, equal unlabored respirations, skin warm/dry/pink. 22:51 Reassessment: Patient appears in no apparent distress at this time. Patient and/or jb4 family updated on plan of care and expected duration. Pain level reassessed. Patient is alert, oriented x 3, equal unlabored respirations, skin warm/dry/pink. 10/24 00:18 Reassessment: Patient appears in no apparent distress at this time. Patient and/or jb4 family updated on plan of care and expected duration. Pain level reassessed. Patient is alert, oriented x 3, equal unlabored respirations, skin warm/dry/pink. Vital Signs: 10/23 17:48 BP 131 / 88; Pulse 98; Resp 17; Temp 98.3; Pulse Ox 100% ; Weight 65.77 kg; Height 5 me1 ft. 0 in. ; Pain 8/10; 20:45 BP 143 / 99; Pulse 96; Resp 16; Pulse Ox 100% on R/A; jb4 21:30 BP 133 / 101; Pulse 97; Resp 16; Pulse Ox 99% ; jb4 22:51 BP 126 / 97; Pulse 87; Resp 16; Pulse Ox 99% on R/A; jb4 10/24 00:18 BP 128 / 97; Pulse 84; Resp 16; Pulse Ox 100% on R/A; jb4 10/23 17:48 Body Mass Index 28.32 (65.77 kg, 152.4 cm) nd1 10/23 17:48 Pain Scale: Adult nd1 Visual Acuity: 10/23 20:49 Left Eye Visual acuity 20/20, Pupil size 3 mm, Normal, React To Light, Reactive To jb4 Accomodation; Right Eye Visual acuity 20/13, Pupil size 3 mm, Normal, React To Light, Reactive To Accomodation; Both Eyes Visual acuity 20/15; With Lenses; ED Course: 17:33 Patient arrived in ED. im 17:50 Triage completed. nd1 17:50 Arm band placed on Patient placed in waiting room. nd1 17:57 Aman Palma PA-C is PHCP. cp 17:57 Aman Ford MD is Attending Physician. cp 18:09 Radiology exam delayed due to lab results not completed at this time. (BUN/Creatinine) jc4 IV insertion attempt and/or patient not having appropriate IV at this time. 19:58 BNP Sent. vk 19:58 Blood Culture Adult (2) Sent. vk 19:58 CMP Sent. vk 19:58 CBC with Diff Sent. vk 19:58 Lactate w/ 2H reflex if indic. Sent. vk 19:58 Protime (+inr) Sent. vk 19:58 Ptt, Activated Sent. vk 19:58 Initial lab(s) drawn, by nd, sent to lab. Urine collected: clean catch specimen, clear. vk Inserted saline lock: 20 gauge in right antecubital area, using aseptic technique. Blood collected. Flushed with 10 mL NS. 20:12 Kasi Rojo, RN is Primary Nurse. 4 21:02 CT Facial Bones W/ Con \\T\\ Mpr In Process Unspecified. EDMS 21:52 Patient has correct armband on for positive identification. Bed in low position. Call jb4 light in reach. Side rails up X 1. Provided Education on: plan of care. 10/24 00:33 Maksim Nguyen MD is Referral Physician. cp 00:47 No provider procedures requiring assistance completed. IV discontinued, intact, jb4 bleeding controlled, No redness/swelling at site. Pressure dressing applied. Administered Medications: 10/23 21:18 Drug: Clindamycin IVPB 600 mg IVPB once over 30 mins; (mix in 50 mL) Route: IVPB; jb4 Infused Over: 30 mins; Site: right antecubital; 21:48 Follow up: Response: No adverse reaction; IV Status: Completed infusion; IV Intake: [id number] 21:18 Drug: fentaNYL (PF) IVP 50 mcg IVP once Route: IVP; Site: right antecubital; jb4 21:48 Follow up: Response: No adverse reaction; Marked relief of symptoms; Pain is decreased jb4 10/24 00:18 Drug: Dexamethasone IVP 10 mg IVP once; (not to exceed 40 mg) Route: IVP; Site: right jb4 antecubital; 00:46 Follow up: Response: No adverse reaction; Marked relief of symptoms jb4 Medication: 00:47 VIS not applicable for this client. jb4 Intake: 10/23 21:48 IV: 50ml; Total: 50ml. jb4 Outcome: 10/24 00:34 Discharge ordered by MD. cp 00:46 Discharged to home ambulatory, jb4 00:46 Condition: stable 00:46 Discharge instructions given to patient, Instructed on discharge instructions, follow up and referral plans. medication usage, Demonstrated understanding of instructions, follow-up care, medications, Prescriptions given X 2, 00:47 Patient left the ED. jb4 Signatures: Dispatcher [employer] EDKS Aman Palma PA-C PA-C Kasi Delgadillo, THOM RN jb4 Marizol Cannon Michelle, RN RN me1 Ros Bruce Justin jc4 Corrections: (The following items were deleted from the chart) 10/23 18:09 18:08 Radiology exam delayed due to lab results not completed at this time. (HCG) jc4 (BUN/Creatinine) test not completed at this time. IV insertion attempt and/or patient not having appropriate IV at this time. jc4
--- NOTE | 2024-10-24 00:35 | EDPHYS ---
Physician Documentation [facility] Name: Amber José Age: 39 yrs Sex: Female : 1985 Arrival Date: 10/23/2024 Time: 17:29 Bed 24 Private MD: ED Physician Aman Ford HPI: 10/23 18:10 This 39 yrs old Female presents to ER via Ambulatory with complaints of Eye Swelling. cp 18:10 redness of both eyes, drainage and swelling of left eye. cp 18:10 Onset: The symptoms/episode began/occurred for past several days, seen by pcp who cp prescribed oral Augmentin and antibiotic eye drops. Patient reports swelling to left side of face today. 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 - Infectious Disease History:: Denies. - Social history:: Smoking status: Patient denies any tobacco usage or history of. ROS: 18:15 Constitutional: Negative for body aches, chills, fever, poor PO intake, cp 18:15 ENT: Negative for injury, pain, and discharge, cp 18:15 Eyes: Positive for discharge, pain, redness, 18:15 Respiratory: Negative for cough, shortness of breath, wheezing, 18:15 Abdomen/GI: Negative for abdominal pain, nausea, vomiting, and diarrhea, 18:15 Skin: Negative for rash, 18:15 Neuro: Negative for altered mental status, headache, weakness, 18:15 All other systems are negative, Exam: 18:15 Constitutional: The patient appears in no acute distress, alert, awake, non-toxic, well cp developed, well nourished, uncomfortable, 18:15 Head/face: Sinus tenderness, is not appreciated, 18:15 Eyes: Periorbital structures: no edema noted, Pupils: equal, round, and reactive to light and accomodation, Extraocular movements: intact throughout, Conjunctiva: injected, bilaterally, left upper and lower eyelids with mild swelling that advances laterally. 18:15 ENT: External ear(s): are unremarkable, Nose: is normal, Mouth: Lips: moist, Oral mucosa: moist, Posterior pharynx: Airway: no evidence of obstruction, patent, 18:15 Neck: ROM/movement: pain, is not appreciated, limited range of motion, is not appreciated, 18:15 Chest/axilla: Inspection: normal, 18:15 Cardiovascular: Rate: normal, Rhythm: regular, 18:15 Respiratory: the patient does not display signs of respiratory distress, Respirations: normal, no use of accessory muscles, no retractions, labored breathing, is not present, Breath sounds: are clear throughout, no decreased breath sounds, no stridor, no wheezing, 18:15 Abdomen/GI: Exam negative for discomfort, distension, guarding, Inspection: abdomen appears normal, 18:15 Neuro: Orientation: to person, place \T\ time. Mentation: is normal, Motor: moves all fours, strength is normal, 20:30 ECG was reviewed by the Attending Physician. cp Vital Signs: 17:48 BP 131 / 88; Pulse 98; Resp 17; Temp 98.3; Pulse Ox 100% ; Weight 65.77 kg; Height 5 me1 ft. 0 in. ; Pain 8/10; 20:45 BP 143 / 99; Pulse 96; Resp 16; Pulse Ox 100% on R/A; jb4 21:30 BP 133 / 101; Pulse 97; Resp 16; Pulse Ox 99% ; jb4 22:51 BP 126 / 97; Pulse 87; Resp 16; Pulse Ox 99% on R/A; jb4 10/24 00:18 BP 128 / 97; Pulse 84; Resp 16; Pulse Ox 100% on R/A; jb4 10/23 17:48 Body Mass Index 28.32 (65.77 kg, 152.4 cm) me1 10/23 17:48 Pain Scale: Adult me1 Visual Acuity: 10/23 20:49 Left Eye Visual acuity 20/20, Pupil size 3 mm, Normal, React To Light, Reactive To jb4 Accomodation; Right Eye Visual acuity 20/13, Pupil size 3 mm, Normal, React To Light, Reactive To Accomodation; Both Eyes Visual acuity 20/15; With Lenses; MDM: 17:57 Medical Screening Exam initiated cp 10/24 00:33 Data reviewed: vital signs, nurses notes, lab test result(s), radiologic studies, CT cp scan, and as a result, I will discharge patient. 00:33 Differential diagnosis: Corneal abrasion of Corneal ulcer of Foreign body in I cp considered the following discharge prescriptions or medication management in the emergency department Medications were administered in the Emergency Department. See MAR. Counseling: I had a detailed discussion with the patient and/or guardian regarding the historical points, exam findings, and any diagnostic results supporting the discharge/admit diagnosis, lab results, radiology results, the need for outpatient follow up, an opthalmologist, to return to the emergency department if symptoms worsen or persist or if there are any questions or concerns that arise at home. Response to treatment: the patient's symptoms have mildly improved after treatment, and as a result, I will discharge patient. 10/23 18:05 Order name: BNP; Complete Time: 20:47 10/23 18:05 Order name: Blood Culture Adult (2) 10/23 18:05 Order name: CBC with Diff; Complete Time: 20:47 10/23 18:05 Order name: CMP; Complete Time: 20:47 10/23 23:51 Interpretation: Normal except: CL 112; GFR 86; ALB 2.8; GLOB 4.0; A/G 0.7. 10/23 18:05 Order name: Lactate w/ 2H reflex if indic.; Complete Time: 20:47 10/23 18:05 Order name: Protime (+inr); Complete Time: 20:47 10/23 18:05 Order name: Ptt, Activated; Complete Time: 20:47 10/23 18:09 Order name: Test, Urine; Complete Time: 20:47 10/23 18:05 Order name: CT Facial Bones W/ Con \T\ Mpr; Complete Time: 23:48 10/23 23:48 Interpretation: Report reviewed. 10/23 18:05 Order name: Visual Acuity; Complete Time: 20:49 10/23 18:05 Order name: Cardiac monitoring; Complete Time: 19:58 cp 10/23 18:05 Order name: EKG - Nurse/Tech; Complete Time: 20:32 10/23 18:05 Order name: IV Saline Lock - Large Bore; Complete Time: 19:58 cp 10/23 18:05 Order name: Labs collected and sent; Complete Time: 19:58 cp 10/23 18:05 Order name: O2 Per Protocol; Complete Time: :58 cp 10/23 18:05 Order name: O2 Sat Monitoring; Complete Time: 19:58 cp 10/23 18:05 Order name: Vital Signs; Complete Time: :58 cp EC/21 20:30 Rate is 94 beats/min. Rhythm is regular. SC interval is normal. QRS interval is normal. cp QT interval is normal. T waves are Inverted in leads III, aVR, V2, V3. Interpreted by me. Reviewed by me. Administered Medications: 21:18 Drug: Clindamycin IVPB 600 mg IVPB once over 30 mins; (mix in 50 mL) Route: IVPB; jb4 Infused Over: 30 mins; Site: right antecubital; 21:48 Follow up: Response: No adverse reaction; IV Status: Completed infusion; IV Intake: [id number] 21:18 Drug: fentaNYL (PF) IVP 50 mcg IVP once Route: IVP; Site: right antecubital; jb4 21:48 Follow up: Response: No adverse reaction; Marked relief of symptoms; Pain is decreased jb4 10/24 00:18 Drug: Dexamethasone IVP 10 mg IVP once; (not to exceed 40 mg) Route: IVP; Site: right jb4 antecubital; 00:46 Follow up: Response: No adverse reaction; Marked relief of symptoms jb4 Disposition: 09:00 Co-signature as Attending Physician, Aman Ford MD I agree with the assessment and elva plan of care. 10/25 00:46 Chart complete. cp Disposition Summary: 10/24/24 00:34 Discharge Ordered Notes: Location: Home cp Problem: new cp Symptoms: have improved cp Condition: Stable cp Diagnosis - Unspecified acute conjunctivitis, bilateral cp Followup: cp - With: Maksim Nguyen MD - When: 1 - 2 days - Reason: Recheck today's complaints Discharge Instructions: - Discharge Summary Sheet cp - Viral Conjunctivitis, Adult cp Forms: - Medication Reconciliation Form cp - Antibiotic Education cp - Prescription Opioid Use cp - Patient Portal Instructions cp - Leadership Thank You Letter cp Prescriptions: - Clindamycin HCl 300 mg Oral Capsule - take 1 capsule ORAL route every 6 hours for 10 days; 40 capsule; Refills: 0, cp Product Selection Permitted - Vigamox 0.5 % Ophthalmic drops - instill 1 drop OPHTHALMIC route every 8 hours for 10 days; 5 milliliter; cp Refills: 0, Product Selection Permitted Signatures: Dispatcher [employer] Aman Hernandez MD MD cha Page, Corey, PA-C PA-C Kasi Delgadillo, RN RN jb4 Adrianna Rodriguez, RN RN me1 Corrections: (The following items were deleted from the chart) 10/23 18:06 18:06 PROBNP+C.LAB.BRZ ordered. EDMS EDMS 18:06 18:06 BLOOD CULTURE*+BA.LAB.BRZ ordered. EDMS EDMS 18:06 18:06 CBC+H.LAB.BRZ ordered. EDMS EDMS 18:06 18:06 COMPREHENSIVE METABOLIC PANEL+C.LAB.BRZ ordered. EDMS EDMS 18:06 18:06 LACTATE+C.LAB.BRZ ordered. EDMS EDMS 18:06 18:06 PROTIME (+INR)+COAG.LAB.BRZ ordered. EDMS EDMS 18:06 18:06 PTT, ACTIVATED+COAG.LAB.BRZ ordered. EDMS EDMS 18:06 18:06 Facial Bones W/ Con \T\ MPR+CT.RAD.BRZ ordered. EDMS EDMS 20:40 18:05 Accucheck ordered. cp jb4
[2024-10-24 02:03] VITALS: TEMP 98.3
[2024-10-24 02:08] VITALS: BP 128/97; O2SAT 100
== END 2024-10-24 00:47 | disposition home or self-care (01) ==
LOC: ER 17:29
DX: H10.33 Unspecified acute conjunctivitis, bilateral (principal)
CPT/HCPCS: 96365; 93005; 87040 ×2; 85025; 36415; 81025; 85610; 83605; 85730; 80053; 83880; 70487; 76377; 96375; 99284; Q9967; J3010; J1100